=== PATIENT | female | born 1950 | race Asian ===

== ENCOUNTER 2016-08-30 08:16 | Inpatient (IN) | payer MEDICARE, OTHER ==
--- NOTE | 2016-08-24 12:53 | PREOPHP ---
DATE OF ADMISSION: 08/30/2016 REFERRING PHYSICIAN: Dr. Bree Guzman. DAY OF SURGERY: 08/30/2016 HISTORY OF PRESENT ILLNESS: This patient has been diagnosed with acute diverticulitis and sigmoid a bscess. She has been medically treated for the past 2 months with different IV and p.o. antibiotics . She has been evaluated by a electrolysist and by Dr. Guzman and at this time is being sched uled for colectomy. PAST MEDICAL HISTORY: Significant for hyperlipidemia and diverticulitis. PAST SURGERIES: She has had right shoulder surgery for repair of rotator cuff tear. She is status post hysterectomy for fibroid mass and hemorrhoidectomy. She is 0. HABITS: She does not smoke and she does not drink. SOCIAL HISTORY: She is and is a homemaker. ALLERGIES: NOT KNOWN. MEDICATIONS: She is on atorvastatin 20 mg daily. FAMILY HISTORY: Noncontributory. REVIEW OF SYSTEMS HEENT: The patient denies headache, dizziness, lightheadedness. No recent change in vision or hear ing. No epistaxis. No sinusitis. CARDIOVASCULAR: No chest pain, exertional shortness of breath or heart palpitations. RESPIRATORY: No cough, chest congestion, hemoptysis. No known history of asthma, tuberculosis or l maria eugenia disease. GASTROINTESTINAL: No nausea or vomiting. She has chronic abdominal pain with occasional diarrhea, no rectal bleeding. GENITOURINARY: She is status post hysterectomy. No urinary frequency, burning, or hematuria. NEUROPSYCH: Denies history of depression and anxiety. No muscle weakness, no tremor. PHYSICAL EXAMINATION: GENERAL: She is a well-developed, well-nourished, awake, alert, oriented female in no acute distres s. VITAL SIGNS: Weight is 127, height is about 5 feet, blood pressure 107/69, pulse is 70 and regular, respirations 17, temperature 98.3. SKIN: Warm and dry. No acute skin lesions. Skin turgor is normal. Skin is not icteric. HEENT: Head is normocephalic and atraumatic. Pupils are reactive to light and accommodation. TMs and pharynx are not injected. NECK: Supple. No adenopathy, no JVD, no carotid bruit. CHEST: Symmetric. LUNGS: Clear to P and A. No rales or rhonchi. HEART: Regular rhythm, no murmur, S1 and S2 are normal. ABDOMEN: There is mild to moderate left lower quadrant tenderness. No palpable masses. No rebound . EXTREMITIES: No edema, cyanosis, deformity. No calf tenderness. NEUROLOGICAL: Muscle strength is 5/5 in both upper and lower extremities. Sensation is grossly nor mal. DTR is 2+ bilaterally. IMPRESSION: History of diverticulitis and sigmoid abscess and hyperlipidemia. Electrocardiogram rev eals regular sinus rhythm with no acute ST-T changes. The patient has been scheduled for preop bloo d tests including CBC, comprehensive metabolic panel, PT, PTT, INR and urinalysis and a chest x-ray. She is clinically stable for surgery. Dictated By: CHEYENNE THOMPSON MD DL/NTS Conf#: [id number] DID#: [id number] CC: BREE GUZMAN MD;*End*
[2016-08-29 17:41] VITALS: BMI 28.1
[~2016-08-30] VITALS: Ht 142.2 cm; Wt 58.0 kg
[2016-08-30] VITALS (27 sets, daily range): BP systolic 96–134; BP diastolic 58–80; PULSE 76–92; RESP 12–20; Ht 142.2 cm; Wt 58.0 kg
[~2016-08-30 08:16] MED LIST: ATOR20TA38 PO; BACTDS PO; CHOL20003 PO; LACT1CAP47 PO; ONDA4TAB95 PO; ROCURONIUM 50 MG INJ ONE
[2016-08-30] MEDS ORDERED: LACTATED RINGER'S 1,000 ML IV ONE (08:30)
[2016-08-30] MEDS ORDERED: CEFOTAXIME 1 GM/50 ML (PMX) 50 ML IVPB ONE (08:30)
[2016-08-30] MEDS ORDERED: metroNIDAZOLE 500 MG/NS (PMX) 100 ML IVPB ONE (08:30)
[2016-08-30] MEDS ORDERED: OMEG500C3 PO (09:48)
--- NOTE | 2016-08-30 09:56 | HPN ---
Date/Time of Note Date/Time of Note DATE: 08/30/16 TIME: 09:56 Interval H&P Admission Note Pt. seen H&P reviewed: No system changes BREE GUZMAN MD Aug 30, 2016 09:56
[2016-08-30] MEDS ORDERED: MIDAZOLAM 1 MG/ML 2 ML INJ ONE (11:30)
[2016-08-30] MEDS ORDERED: PROPOFOL 20 ML ONE (11:30)
[2016-08-30] MEDS ORDERED: morphine SULFATE/PF (10 MG/10 ML) INJ ONE (11:31)
[2016-08-30] MEDS ORDERED: PHENYLephrine (100 MCG/ML) 5ML SYG ONE (11:53)
[2016-08-30] MEDS ORDERED: BUPIVACAINE 0.25%/EPI (SDV) 30 ML INJ ONE (12:27)
[2016-08-30] MEDS ORDERED: METOCLOPRAMIDE 10 MG INJ ONE (12:27)
[2016-08-30] MEDS ORDERED: LIDOCAINE 1% (MPF) 30 ML INJ ONE (12:27)
[2016-08-30] MEDS ORDERED: GLYCOPYRROLATE 0.4 MG INJ ONE (12:28)
[2016-08-30] MEDS ORDERED: ONDANSETRON 4 MG INJ ONE (12:28)
[2016-08-30] MEDS ORDERED: NEOSTIGMINE 3 MG/3 ML SYRINGE ONE (12:28)
[2016-08-30] MEDS ORDERED: ROPIVACAINE 0.5 % 30 ML VIAL ONE (15:12)
[2016-08-30] MEDS ORDERED: KETOROLAC 30 MG INJ ONE (15:16)
[2016-08-30] MEDS ORDERED: ONDANSETRON 4 MG INJ IV PRN ×3 (16:30)
[2016-08-30] MEDS ORDERED: HYDROmorphONE (0.2 MG/ML) 10ML SYG IV PRN ×2 (16:30)
[2016-08-30] MEDS ORDERED: MEPERIDINE 25 MG INJ IV PRN (16:30)
[2016-08-30] MEDS ORDERED: HYDROmorphONE 1 MG/ML SYG IV PRN ×4 (16:30)
[2016-08-30] MEDS ORDERED: DIPHENHYDRAMINE 50 MG INJ IV PRN ×2 (16:30)
[2016-08-30] MEDS ORDERED: CEFTRIAXONE 1 GM/50 ML (PMX) 50 ML IVPB SCH (16:30)
[2016-08-30] MEDS ORDERED: NALOXONE (0.4 MG/ML) INJ IV PRN (16:30)
[2016-08-30] MEDS ORDERED: KETOROLAC 30 MG INJ IV PRN (16:30)
[2016-08-30] MEDS ORDERED: METOCLOPRAMIDE 10 MG INJ IV PRN (16:30)
[2016-08-30] MEDS ORDERED: HYDROCODONE/APAP (5/325) TAB PO PRN (16:30)
--- NOTE | 2016-08-30 16:47 | OPR ---
Date/Time of Note Date/Time of Note DATE: 08/30/16 TIME: 16:30 Operative Report Procedure Date: Aug 30, 2016 Preoperative Diagnosis 1. History of perforated diverticulitis 2. Possible colovesicular fistula 3. Possible colovaginal fistula Postoperative Diagnosis 1. History of perforated diverticulitis with significant intrapelvic adhesions to bladder and pelvic structures 2. Intra-abdominal entire small bowel and sigmoid adhesions Operation Performed 1. Laparoscopic sigmoid resection 2. Laparoscopic end colostomy with Jarvis's pouch 3. Laparoscopic enterorrhaphy 2 4. Rigid sigmoidoscopy 5. Implantation of biologic over the bladder vagina and the pelvic raw surface 6. Local anesthetic injection, [id number] Surgeon: BREE GUZMAN MD Regional Wildlife Agent: HELEN RIBEIRO DO Anesthesia: general (plus local plus regional) Anesthesiologist: CRAIG KIM MD Estimated Blood Loss: 100 - 150 ml's Specimens Sigmoid with distal suture Tubes/Drains 19 Egyptian Toi through the right abdomen ACell 10 x 15 and 7 x 10, 3 layer sheets Complications: None Pt Condition Post Procedure: stable Disposition: PACU Indications Patient has had 2 perforated diverticulitis episodes. She's been treated medically previously. She is here for elective resection especially since her CT shows possible fistula. She understands that she may end up with a colostomy. Risks include but are not limited to bleeding, infection, abscess, seroma, leak , damage to intestines or any intra-abdominal/intrapelvic structures, hernia formation, chronic pain, need for re-operations or further surgeries, WA, stroke , PE, DVT, pneumonia, organ failures, or even . Procedure Description Patient was brought into the operating room, placed supine on the operating table, SCDs were placed, right arm was tucked, all pressure points were well- padded, preoperative antibiotics administered, and after induction of anesthesia , patient was placed in the lithotomy. Vogel was inserted. Patient was then prepped and draped in usual sterile fashion, and timeout was performed. Incision was made in the right upper quadrant, and using an Optiview port and 5 mm 0 scope abdomen was safely entered and insufflated to 15 mmHg with CO2. Laparoscopy was performed and no injuries were identified. There was tattoo marking in the sigmoid colon with some splattering of the tattoo ink on the ro and the intestines. Under direct visualization another 5 mm port was placed in the right lower quadrant a 12 mm port was placed in the right lower lateral quadrant. Eventually a 5 mm port was placed in the left upper quadrant. Patient was placed in Trendelenburg and left side up. Patient had extensive small bowel to small bowel adhesions which were lysed easily however there was a area of dense adhesion of small bowel to itself and mesentery of the sigmoid colon. This was very meticulously dissected and 2 area of the small bowel were repaired with 3-0 silk Lembert sutures to reinforce the serosa. There is very dense incisions of the colon to the bladder and pelvic structures (probable ovaries and tubes. Very meticulous dissection was performed to separate the colon from the bladder finally no defect was visualized on the bladder. Using LigaSure and scissor colon was mobilized off of the left lateral wall in the avascular plane fully mobilizing the left colon the sigmoid and the upper rectum. The medial mesentery was opened and the left colon, sigmoid and the upper rectum beyond the peritoneal reflection. At least 5 cm of colon proximal and distal to the inflamed region were marked. The mesentery was sequentially taken using LigaSure with complete hemostasis. The colon 5 cm proximal and distal to the affected area area was transected with Endo KVNG echelon 45 mm blue staplers. Prior to stapling the colon rigid sigmoidoscopy was performed to 20 cm to fully identified the colon and location to other structures and to look for a possible fistulous openings. None were identified. Due to the significant inflammation I decided not to create an anastomosis. Instead as I have discussed with patient preoperatively, we decided to proceed with end colostomy and Jarvis's pouch. 2-0 Prolene suture was placed on the right lateral aspect of the rectal stump for future identification. The bladder vagina and the pelvic posterior wall were reinforced with 3 layer biologic xenograft tissue to one improve healing and secondary to reduce adhesions to bowel. Incision was made in the left lower quadrant and the proximal colon was exteriorized after the specimen was removed and was tagged with 2-0 silk suture distally. 19 Egyptian Toi was placed through the right lower quadrant 5 mm port into the pelvis and secured with 3-0 nylon suture. Pulmonary reports that fascia was closed with Endo Close and 0 Vicryl in a [id number] manner. The colostomy was not twisted. Ports and CO2 were removed under direct visualization. Wounds were thoroughly irrigated and skin was closed with 4-0 Monocryl subcutaneous closure fashion. Dermabond was applied on the trocar sites. The drain was secured with dressing. The colostomy was matured with 2-0 silk sutures from the fascia to the base of the colostomy. Then the 2 silk sutures were used to riley the colon in 4 corners and then 2-0 silk suture was used to secure the colon attached to the abdominal wall circumferentially. Colostomy bag was applied. All counts were correct and the end of the operation 2. Patient was extubated and transferred to recovery room in stable condition. BREE GUZMAN MD Aug 30, 2016 16:46
[2016-08-30] MEDS: HYDROmorphONE (0.2 MG/ML) 10ML SYG IV PRN ×5 (17:02→17:46)
[2016-08-30] MEDS: metroNIDAZOLE 500 MG/NS (PMX) 100 ML IVPB SCH (17:14)
--- NOTE | 2016-08-30 18:27 | HP ---
DATE OF ADMISSION: 08/30/2016 TIME OF EVALUATION: 1700 hours. REASON FOR ADMISSION: Perforated diverticulitis with significant pelvic adhesions of bladder and pelvic structures. CONSULTATIONS: Dr. Bruce Rodriguez, general surgery. HISTORY OF PRESENT ILLNESS: This is a 66-year-old female with a past medical history of hyperlipidemia, diverticulitis with perforation and intrapelvic adhesions to the bladder and pelvic structures and iron deficiency anemia who was brought in electively for surgical intervention. The patient underwent a laparoscopic sigmoid colon resection with laparoscopic colostomy with Jeremy's pouch, laparoscopic enterorrhaphy and implantation of biologic over the bladder, vagina and pelvic raw surface with no immediate postoperative complications. The patient was transferred to the PACU. The patient was having perforated diverticulitis and intrapelvic adhesions for the past few months. The patient has history of insertion of a drain placement for infected diverticular abscess in February 2016. The patient has been following up with Dr. Rodriguez as outpatient. The patient was brought to the hospital for the current surgery. PAST MEDICAL HISTORY: Perforated diverticulitis, pelvic abscess, iron deficiency, hyperlipidemia. PAST SURGICAL HISTORY: Right shoulder rotator cuff surgery, hysterectomy, hemorrhoidectomy. HOME MEDICATIONS: 1. Atorvastatin 20 mg p.o. at bedtime. 2. [place] 3 fatty acid 1000 mg p.o. daily. 3. Probiotic 1 capsule p.o. daily. 4. Vitamin D3 2000 units p.o. daily. ALLERGIES: NO KNOWN DRUG ALLERGIES. SOCIAL HISTORY: The patient lives at home with her . The patient has no kids. No history of tobacco, alcohol or illicit drug use. REVIEW OF SYSTEMS: A 12-point review of systems was done and review of systems , nonsignificant other than the patient has current pain at incision site with some associated nausea secondary to recent anesthesia. PHYSICAL EXAMINATION: VITAL SIGNS: Temperature 97.9, pulse rate 88, respiratory rate 14, blood pressure 121/67, oxygen saturation 97% on low flow O2. GENERAL: This is a slightly overweight female lying in bed in no apparent distress. HEENT: Head normocephalic and atraumatic. Eyes: Anicteric sclerae. Conjunctivae clear. ENT: Nasal septum is midline. Oral mucosa is dry. NECK: Supple. No JVD noticed. RESPIRATORY: Bilaterally diminished breath sounds. No adventitious breath sounds heard. No use of accessory muscles of respiration. CARDIAC: Regular rate and rhythm. No murmurs. ABDOMEN: Three laparoscopic incision sites with surgical glue on top of it. Right-sided EDISON drain in place. Left-sided colostomy in place. Bowel sounds hypoactive. GENITOURINARY: Patient has a Vogel catheter in place. EXTREMITIES: No cyanosis, no clubbing, no edema. Peripheral pulses are palpable. NEUROLOGIC: The patient is awake, alert and oriented. Moves all 4 extremities. No focal deficits. LABORATORY AND DIAGNOSTIC DATA: No lab or diagnostic data from current admission. Labs are pending at this time. IMPRESSION: This is a 66-year-old female who was brought in electively for surgical intervention for perforated colitis and pelvic abscess. The patient is status post sigmoid colon resection with colostomy replacement. She will be admitted here for further treatment and evaluation. ASSESSMENT AND PLAN: 1. History of perforated diverticulitis with significant pelvic adhesions, bladder and pelvic structures. Status post laparoscopic sigmoid resection, laparoscopic end colostomy with Jeremy pouch, laparoscopic enterorrhaphy, sigmoidoscopy, implantation of biologic over bladder, vagina and the pelvis. Continue postoperative care. Pain management as per the surgeon. IV fluids as per the surgeon. The patient was started on a clear liquid diet. The patient will be encouraged on early ambulation. The patient will be started with incentive spirometer. 2. Dyslipidemia. The patient's statins will be put on hold at this time. A fasting lipid panel will be obtained. 3. Iron deficiency. Iron panel will be obtained on this patient. The patient' s H and H will be monitored closely. Plan. The patient will be admitted to inpatient medical/surgical floor. The patient will be started on clear liquid diet. The patient will be started on DVT prophylaxis with bilateral sequential compression devices. The patient was started on gastrointestinal prophylaxis. Activities will be up with assistance. The patient will remain a full code. The patient will be maintained on antibiotics for 24 hours as per surgery recommendations. The rest of the patient's management will be based on the clinical course, the results of diagnostic studies and inputs from consultants. Based on the patient's clinical presentation, she most probably requires more than 2 midnights' stay for further management and evaluation of her clinical presentation. The case and management of this patient was fully discussed with Dr. Butt. Approximately 50 minutes was spent on the history and physical on this patient. EARLENE BUTT MD AM/ADRIANNE Conf#: [id number] DID#: [id number] MTDD
[2016-08-30] MEDS: D5W-0.45 NACL + KCL 20 MEQ 1,000 ML IV SCH (18:29)
[2016-08-30] MEDS ORDERED: metroNIDAZOLE 500 MG/NS (PMX) 100 ML IVPB SCH (20:00)
[2016-08-31] VITALS: BP 118/65; PULSE 91; RESP 18
[2016-08-31] MEDS: metroNIDAZOLE 500 MG/NS (PMX) 100 ML IVPB SCH ×3 (00:43→16:33)
[2016-08-31 01:00] VITALS: BP 116/62; PULSE 94; RESP 18
[2016-08-31 04:00] VITALS: BP 114/62; PULSE 95; RESP 18
[2016-08-31 05:21] LABS: HEMATOCRIT 26.6 % (37.0-47.0); HEMOGLOBIN 8.8 g/dl (12.0-16.0); MEAN CORPUSCULAR HEMOGLOBIN 28.5 pg (29.0-33.0); MEAN CORPUSCULAR VOLUME 86.6 fl (82.0-101.0); MEAN PLATELET VOLUME 7.1 fl (7.4-10.4); PLATELET COUNT 214 10^3/UL (140-440); RED BLOOD COUNT 3.08 10^6/ul (4.20-5.40); RED CELL DISTRIBUTION WIDTH 15.6 % (11.5-14.5); UNCORRECTED WBC 9.2 10^3/ul (4.8-10.8); WHITE BLOOD COUNT 9.2 10^3/ul (4.8-10.8)
[2016-08-31 05:26] LABS: ALBUMIN 3.2 g/dl (3.3-4.9)
[2016-08-31 05:27] LABS: POTASSIUM 4.7 mmol/L (3.5-5.1)
[2016-08-31 05:29] LABS: ALBUMIN/GLOBULIN RATIO 1.06; BILIRUBIN,INDIRECT 0.2 mg/dl (0-1.1); BILIRUBIN,TOTAL 0.2 mg/dl (0.2-1.3); CREATININE 0.64 mg/dl (0.44-1.00); TOTAL PROTEIN 6.2 g/dl (6.1-8.1)
[2016-08-31 05:30] LABS: CALCIUM 8.5 mg/dl (8.4-10.2)
[2016-08-31 05:38] LABS: TOTAL IRON BINDING CAPACITY 249 ug/dl (241-421)
[2016-08-31 05:47] LABS: IRON 31 ug/dl (35-150)
[2016-08-31 05:55] LABS: CHOL/HDL RATIO 3.6 RATIO; MAGNESIUM 1.5 mg/dl (1.7-2.5); PHOSPHORUS 3.4 mg/dl (2.5-4.9)
[2016-08-31 06:02] LABS: THYROID STIMULATING HORMONE 1.54 MIU/L (0.465-4.680)
[2016-08-31] MEDS: PANTOPRAZOLE (EC) 40 MG TAB PO SCH (06:34)
[2016-08-31] MEDS: D5W-0.45 NACL + KCL 20 MEQ 1,000 ML IV SCH ×2 (06:35→18:02)
[2016-08-31 06:47] LABS: SUSPECT 1
[2016-08-31 06:48] LABS: CONDITION 1; LH ANALYZER COMMENTS 1
[2016-08-31 07:38] VITALS: BP 95/52; RESP 16
[2016-08-31] MEDS ORDERED: MAGNESIUM SULFATE 2 GM/50 ML 50 ML IVPB ONE (09:30)
[2016-08-31] MEDS ORDERED: SOD FERRIC GLUC COMPLX 125 MG in SOD CHLORIDE 0.9% 100 ML IVPB SCH (09:30)
--- NOTE | 2016-08-31 09:54 | PN ---
Date/Time of Note Date/Time of Note DATE: 08/31/16 TIME: 09:53 Assessment/Plan VTE Prophylaxis VTE Prophylaxis Intervention: SCD's Lines/Catheters IV [facility]ter Type (from [facility]): Saline Lock Urinary Cath still in place: No Assessment/Plan Chief Complaint/Hosp Course 1. History of perforated diverticulitis with significant pelvic adhesions. Status post laparoscopic sigmoid resection, laparoscopic end colostomy with Jeremy pouch, laparoscopic enterorrhaphy, sigmoidoscopy, implantation of biologic over bladder, vagina and the pelvis. Continue postoperative care. Pain management as per the surgeon. IV fluids as per the surgeon. Encourage early ambulation. Advancement of diet as per surgery. Encourage incentive spirometry 2. Dyslipidemia. The patient's statins will be resumed. Fasting lipid panel satisfactory. 3. Normocytic anemia with iron deficiency. Iron panel showing low iron levels. Will start the patient on iron supplements. The patient's H and H will be monitored closely. 4. Hypomagnesemia. Replete. 5. Fluids, electrolytes, and nutrition. Clear liquid diet. Advancement of diet as per surgery. 6. DVT prophylaxis. Bilateral sequential compression devices. 7. Gastrointestinal prophylaxis. Proton pump inhibitors. 8. Plan. Advancement of diet as per surgery. Start early ambulation. Encourage frequent use of incentive spirometry. Replete magnesium. Start IV iron supplements. Case discussed with Dr. Butt. Problems: Subjective 24 Hr Interval Summary Free Text/Dictation Abdominal pain well controlled. Vogel catheter has been discontinued. Exam/Review of Systems Vital Signs Vitals Vital Signs Date Time Temp Pulse Resp B/P Pulse Ox O2 Delivery O2 Flow Rate FiO2 08/31/16 07:38 99.5 102 16 95/52 98 08/31/16 04:00 Nasal Cannula 2.0 Intake and Output 08/30/16 08/30/16 08/31/16 15:00 23:00 07:00 Intake Total 2800 ml 1180 ml Output Total 425 ml 75 ml Balance 2375 ml 1105 ml Exam GENERAL: This is a slightly overweight female lying in bed in no apparent distress. HEENT: Head normocephalic and atraumatic. Eyes: Anicteric sclerae. Conjunctivae clear. ENT: Nasal septum is midline. Oral mucosa is dry. NECK: Supple. No JVD noticed. RESPIRATORY: Bilaterally diminished breath sounds. No adventitious breath sounds heard. No use of accessory muscles of respiration. CARDIAC: Regular rate and rhythm. No murmurs. ABDOMEN: Three laparoscopic incision sites with surgical glue on top of it. Right-sided EDISON drain in place. Left-sided colostomy in place. Bowel sounds hypoactive. GENITOURINARY: Deferred. EXTREMITIES: No cyanosis, no clubbing, no edema. Peripheral pulses are palpable. NEUROLOGIC: The patient is awake, alert and oriented. Moves all 4 extremities. No focal deficits. Results Result Diagram: 08/31/1643208/31/16432 Results 24 hrs Laboratory Tests Test 08/31/16 04:33 Alanine Aminotransferase (ALT/SGPT) 27 Albumin 3.2 L Albumin/Globulin Ratio 1.06 Alkaline Phosphatase 43 Anion Gap 14 Aspartate Amino Transf (AST/SGOT) 27 Blood Morphology Comment Blood Urea Nitrogen 13 Calcium Level 8.5 Carbon Dioxide Level 25 Chloride Level 103 Cholesterol Level 146 Cholesterol/HDL Ratio 3.6 Creatinine 0.64 Direct Bilirubin 0.00 Ferritin 284.0 H Free Thyroxine 0.59 L Globulin 3.00 Glucose Level 100 HDL Cholesterol 40 Hematocrit 26.6 L Hemoglobin 8.8 L Hemoglobin A1c 5.2 Indirect Bilirubin 0.2 Iron Level 31 L LDL Cholesterol, Calculated 91 Magnesium Level 1.5 L Mean Corpuscular Hemoglobin 28.5 L Mean Corpuscular Hemoglobin Concent 33.0 Mean Corpuscular Volume 86.6 Mean Platelet Volume 7.1 L Nucleated Red Blood Cells # Percent Iron Saturation 12 L Phosphorus Level 3.4 Platelet Count 214 # Potassium Level 4.7 Red Blood Count 3.08 L Red Cell Distribution Width 15.6 H Sodium Level 137 Thyroid Stimulating Hormone (TSH) 1.540 Total Bilirubin 0.2 Total Iron Binding Capacity 249 Total Protein 6.2 Triglycerides Level 74 White Blood Count 9.2 # Medications Medications Current Medications Naloxone HCl (Narcan) 0.1 mg Q2M PRN IV FOR RESP RATE 8 OR LESS; Start at 16:30; Stop 08/31/16 at 16:29 Ketorolac Tromethamine (Toradol) 30 mg Q6H PRN IV PAIN Last administered on t 09:42; Admin Dose 30 MG; Start 08/30/16 at 16:30; Stop 08/31/16 at 16:29 Hydromorphone HCl (Dilaudid) 1 mg Q3H PRN IV BREAKTHROUGH PAIN; Start 08/30/16 at 16:30; Stop 08/31/16 at 16:29 Hydromorphone HCl (Dilaudid) 0.2 mg Q3H PRN IV PAIN LEVEL 1-5; Start 08/30/16 at 16:30; Stop 08/31/16 at 16:29 Hydromorphone HCl (Dilaudid) 0.4 mg Q3H PRN IV PAIN LEVEL 6-10; Start 08/30/16 at 16:30; Stop 08/31/16 at 16:29 Diphenhydramine HCl (Benadryl) 25 mg Q6H PRN IV ITCHING; Start 08/30/16 at 16: 30; Stop 08/31/16 at 16:29 Ondansetron HCl (Zofran Inj) 4 mg Q6H PRN IV NAUSEA AND/OR VOMITING; Start at 16:30; Stop 08/31/16 at 16:29 Ondansetron HCl (Zofran Inj) 4 mg Q6H PRN IV NAUSEA AND/OR VOMITING; Start at 16:30 Pantoprazole 40 mg 40 mg DAILY@06 PO Last administered on 08/31/16 06:34; Admin Dose 40 MG; Start 08/31/16 at 06:00 Potassium Chloride/Dextrose/ Sod Cl 1,000 ml @ 90 mls/hr Q11H7M IV Last administered on 08/31/16 06:35; Admin Dose 90 MLS/HR; Start 08/30/16 at 16:19 Metronidazole (Flagyl 500 Mg (Pmx)) 100 ml @ 100 mls/hr Q8H IVPB Last administered on 08/31/16 08:25; Admin Dose 100 MLS/HR; Start 08/30/16 at 17:00 ; Stop 08/31/16 at 16:59 Acetaminophen/ Hydrocodone Bitart ([place] (5/325)) 2 tab Q4H PRN PO Pain 6-10; Start 08/30/16 at 16:30 Acetaminophen/ Hydrocodone Bitart ([place] (5/325)) 1 tab Q4H PRN PO Pain 1-5; Start 08/30/16 at 16:30 Hydromorphone HCl 0.5 mg 0.5 mg Q2 PRN IV Breakthrough PAIN; Start 08/30/16 at 16:30 Magnesium Sulfate 50 ml @ 25 mls/hr ONCE ONCE IVPB ; Start 08/31/16 at 09:30; Stop 08/31/16 at 11:29 Ferric Sodium Gluconate Complex/ Sodium Chloride (Ferrlecit/NS) 110 ml @ 100 mls/hr Q24H IVPB ; Start 08/31/16 at 09:30; Stop 09/02/16 at 10:35 EARLENE BAÑUELOS NP Aug 31, 2016 09:54
[2016-08-31 10:08] LABS: LYMPHOCYTES # 1.1 10^3/ul (0.8-2.9); MONOCYTE # 0.5 10^3/ul (0.3-0.9); NEUTROPHIL # 7.2 10^3/ul (1.6-7.5)
[2016-08-31 10:09] LABS: ANISOCYTOSIS 1+; HYPOCHROMASIA 1+
[2016-08-31 11:33] LABS: ADD UMIC YES; URINE BILIRUBIN (Dip) NEGATIVE (NEGATIVE); URINE BLOOD (Dip) 3+ (NEGATIVE); URINE COLOR YELLOW (YELLOW); URINE GLUCOSE (Dip) NEGATIVE (NEGATIVE); URINE KETONES (Dip) NEGATIVE (NEGATIVE); URINE LEUKOCYTE ESTERASE (Dip) NEGATIVE (NEGATIVE); URINE NITRITE (Dip) NEGATIVE (NEGATIVE); URINE TOTAL PROTEIN (Dip) 1+ (NEGATIVE); URINE UROBILINOGEN (Dip) 0.2 E.U./dL (0.1-1.0)
[2016-08-31 11:58] LABS: URINE RBCS >200 /HPF (0)
[2016-08-31 11:59] LABS: BACTERIA,URINE OCCASIONAL
[2016-08-31] MEDS: SOD FERRIC GLUC COMPLX 125 MG in SOD CHLORIDE 0.9% 100 ML IVPB SCH (12:32)
--- NOTE | 2016-08-31 12:35 | PN ---
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 Dyslipidemia -diet/med optimization 4. BMI 29 -diet/exercise optimization 5. Hypoalbuminemia -eventual nutritional optimization Problems: Subjective 24 Hr Interval Summary Low grade temp. Min pain. Tachycardia. No cp/sob. No cough. No vickers/dizzy/ visual or neuro changes. No dysuria. Exam/Review of Systems Vital Signs Vitals Vital Signs Date Time Temp Pulse Resp B/P Pulse Ox O2 Delivery O2 Flow Rate FiO2 08/31/16 07:38 99.5 102 16 95/52 98 08/31/16 04:00 Nasal Cannula 2.0 Intake and Output 08/30/16 08/30/16 08/31/16 15:00 23:00 07:00 Intake Total 2800 ml 1180 ml Output Total 425 ml 75 ml Balance 2375 ml 1105 ml Exam Constitutional: alert, oriented, No distress Psych: nl mood/affect, No anxiety, No confusion Head: atraumatic, normocephalic Eyes: EOMI, PERRL, nl conjunctiva, No icteric ENMT: mucosa pink and moist, nl external ears & nose Neck: non-tender, supple, No jvd Respiratory: normal air movement, No congested cough, No labored breathing Cardiovascular: regular rate and rhythm, No edema Gastrointestinal: other (Colostomy pink), soft, tender (min), No rebound or guarding Musculoskeletal: nl extremities to inspection, nl gait and stance, No joint tenderness Extremities: normal pulses, No calf tenderness, No cyanosis Neurological: nl mental status, nl speech, nl strength Skin: nl turgor, No diaphoresis, No rash or lesions Lymph: nl lymph nodes Results Result Diagram: 08/31/16 0433 08/31/16 0433 BREE GUZMAN MD Aug 31, 2016 12:35
[2016-08-31 12:42] VITALS: BP 102/50; PULSE 97; RESP 20
[2016-08-31] MEDS ORDERED: CEFTRIAXONE 1 GM/50 ML (PMX) 50 ML IVPB ONE (17:00)
[2016-08-31] MEDS: ATORVASTATIN 20 MG TAB PO SCH (20:05)
[2016-08-31] MEDS: HYDROCODONE/APAP (5/325) TAB PO PRN (20:13)
[2016-08-31 20:15] VITALS: BP 110/58; RESP 20
[2016-08-31] MEDS: ACETAMINOPHEN 325 MG TAB PO PRN (22:21)
[2016-09-01 00:10] VITALS: BP 110/61; PULSE 99; RESP 18
[2016-09-01 05:15] LABS: BASOPHILS % 0.2 % (0.0-2.0); EOSINOPHILS # 0.1 10^3/ul (0.0-0.5); EOSINOPHILS % 1.4 % (0.0-7.0); HEMATOCRIT 25.3 % (37.0-47.0); HEMOGLOBIN 8.4 g/dl (12.0-16.0); LYMPHOCYTES # 1.1 10^3/ul (0.8-2.9); LYMPHOCYTES % 14.6 % (15.0-51.0); MEAN CORPUSCULAR HEMOGLOBIN 28.6 pg (29.0-33.0); MEAN CORPUSCULAR HGB CONC 33.3 g/dl (32.0-37.0); MEAN CORPUSCULAR VOLUME 86.1 fl (82.0-101.0); MEAN PLATELET VOLUME 6.5 fl (7.4-10.4); MONOCYTE # 0.5 10^3/ul (0.3-0.9); MONOCYTES % 7.2 % (0.0-11.0); NEUTROPHIL # 5.7 10^3/ul (1.6-7.5); NEUTROPHILS % 76.6 % (39.0-77.0); PLATELET COUNT 212 10^3/UL (140-440); RED BLOOD COUNT 2.93 10^6/ul (4.20-5.40); UNCORRECTED WBC 7.4 10^3/ul (4.8-10.8); WHITE BLOOD COUNT 7.4 10^3/ul (4.8-10.8)
[2016-09-01] MEDS: PANTOPRAZOLE (EC) 40 MG TAB PO SCH (05:16)
[2016-09-01] MEDS: D5W-0.45 NACL + KCL 20 MEQ 1,000 ML IV SCH ×3 (05:16→23:54)
[2016-09-01 05:18] VITALS: BP 123/61; PULSE 95; RESP 18
[2016-09-01 05:21] LABS: POTASSIUM 3.9 mmol/L (3.5-5.1)
[2016-09-01 05:23] LABS: ALBUMIN/GLOBULIN RATIO 0.96; BILIRUBIN,INDIRECT 0.2 mg/dl (0-1.1); BILIRUBIN,TOTAL 0.2 mg/dl (0.2-1.3); CREATININE 0.62 mg/dl (0.44-1.00); TOTAL PROTEIN 6.1 g/dl (6.1-8.1)
[2016-09-01 05:24] LABS: CALCIUM 8.6 mg/dl (8.4-10.2); MAGNESIUM 2.2 mg/dl (1.7-2.5); PHOSPHORUS 2.5 mg/dl (2.5-4.9)
[2016-09-01 05:26] LABS: CONDITION 1; LH ANALYZER COMMENTS 1
[2016-09-01 07:22] VITALS: BP 124/70; RESP 17
[2016-09-01] MEDS: CHOLECALCIFEROL 2,000 UNIT CAP PO SCH (09:12)
[2016-09-01] MEDS: HYDROCODONE/APAP (5/325) TAB PO PRN ×2 (09:19→16:17)
--- NOTE | 2016-09-01 09:27 | PN ---
Date/Time of Note Date/Time of Note DATE: 09/01/16 TIME: 09:25 Assessment/Plan VTE Prophylaxis VTE Prophylaxis Intervention: SCD's Lines/Catheters IV Catheter Type (from [facility]): Peripheral IV Urinary Cath still in place: No Assessment/Plan Chief Complaint/Hosp Course 1. History of perforated diverticulitis with significant pelvic adhesions. Status post laparoscopic sigmoid resection, laparoscopic end colostomy with Jeremy pouch, laparoscopic enterorrhaphy, sigmoidoscopy, implantation of biologic over bladder, vagina and the pelvis. Continue postoperative care. Pain management as per the surgeon. IV fluids as per the surgeon. Encourage early ambulation. Advancement of diet as per surgery. Encourage incentive spirometry 2. Dyslipidemia. Continue statins. Fasting lipid panel satisfactory. 3. Normocytic anemia with iron deficiency. Iron panel showing low iron levels. Continue iron supplements. The patient's H and H will be monitored closely. 4. Vitamin D deficiency. Continue supplements. 5. Fluids, electrolytes, and nutrition. Clear liquid diet. Advancement of diet as per surgery. 6. DVT prophylaxis. Bilateral sequential compression devices. 7. Gastrointestinal prophylaxis. Proton pump inhibitors. 8. Plan. Advancement of diet as per surgery. Encourage frequent ambulation. Encourage frequent use of incentive spirometry. Will order physical therapy evaluation. Case discussed with Dr. Butt. Problems: Subjective 24 Hr Interval Summary Free Text/Dictation The patient had a febrile episode last night. Pain fairly well controlled. Exam/Review of Systems Vital Signs Vitals Vital Signs Date Time Temp Pulse Resp B/P Pulse Ox O2 Delivery O2 Flow Rate FiO2 09/01/16 07:22 99.4 101 17 124/70 98 09/01/16 05:18 Room Air 08/31/16 04:00 2.0 Intake and Output 08/31/16 08/31/16 09/01/16 15:00 23:00 07:00 Intake Total 260 ml 1530 ml 1240 ml Output Total 760 ml 770 ml Balance 260 ml 770 ml 470 ml Exam GENERAL: This is a slightly overweight female lying in bed in no apparent distress. HEENT: Head normocephalic and atraumatic. Eyes: Anicteric sclerae. Conjunctivae clear. ENT: Nasal septum is midline. Oral mucosa is dry. NECK: Supple. No JVD noticed. RESPIRATORY: Bilaterally diminished breath sounds. No adventitious breath sounds heard. No use of accessory muscles of respiration. CARDIAC: Regular rate and rhythm. No murmurs. ABDOMEN: Three laparoscopic incision sites with surgical glue on top of it. Right-sided EDISON drain in place. Left-sided colostomy in place. Bowel sounds hypoactive. GENITOURINARY: Deferred. EXTREMITIES: No cyanosis, no clubbing, no edema. Peripheral pulses are palpable. NEUROLOGIC: The patient is awake, alert and oriented. Moves all 4 extremities. No focal deficits. Results Result Diagram: 09/01/1643909/01/16439 Results 24 hrs Laboratory Tests Test 09/01/16 04:40 Alanine Aminotransferase (ALT/SGPT) 26 Albumin 3.0 L Albumin/Globulin Ratio 0.96 Alkaline Phosphatase 51 Anion Gap 11 Aspartate Amino Transf (AST/SGOT) 18 Basophils # 0.0 Basophils % 0.2 Blood Morphology Comment Blood Urea Nitrogen 6 L Calcium Level 8.6 Carbon Dioxide Level 26 Chloride Level 107 Creatinine 0.62 Direct Bilirubin 0.00 Eosinophils # 0.1 Eosinophils % 1.4 Globulin 3.10 Glucose Level 113 Hematocrit 25.3 L Hemoglobin 8.4 L Indirect Bilirubin 0.2 Lymphocytes # 1.1 Lymphocytes % 14.6 L Magnesium Level 2.2 Mean Corpuscular Hemoglobin 28.6 L Mean Corpuscular Hemoglobin Concent 33.3 Mean Corpuscular Volume 86.1 Mean Platelet Volume 6.5 L Monocytes # 0.5 Monocytes % 7.2 Neutrophils # 5.7 Neutrophils % 76.6 Nucleated Red Blood Cells # 0.0 Nucleated Red Blood Cells % 0.0 Phosphorus Level 2.5 Platelet Count 212 Potassium Level 3.9 Red Blood Count 2.93 L Red Cell Distribution Width 16.0 H Sodium Level 140 Total Bilirubin 0.2 Total Protein 6.1 White Blood Count 7.4 Medications Medications Current Medications Ondansetron HCl (Zofran Inj) 4 mg Q6H PRN IV NAUSEA AND/OR VOMITING; Start at 16:30 Pantoprazole 40 mg 40 mg DAILY@06 PO Last administered on 09/01/16 05:16; Admin Dose 40 MG; Start 08/31/16 at 06:00 Potassium Chloride/Dextrose/ Sod Cl (D5-1/2ns + KCl 20 Meq) 1,000 ml @ 90 mls/ hr Q11H7M IV Last administered on 09/01/16 05:16; Admin Dose 90 MLS/HR; Start 08/30/16 at 16:19 Acetaminophen/ Hydrocodone Bitart ([place] (5/325)) 2 tab Q4H PRN PO Pain 6-10; Start 08/30/16 at 16:30 Acetaminophen/ Hydrocodone Bitart ([place] (5/325)) 1 tab Q4H PRN PO Pain 1-5 Last administered on 09/01/16 09:19; Admin Dose 1 TAB; Start 08/30/16 at 16:30 Hydromorphone HCl 0.5 mg 0.5 mg Q2 PRN IV Breakthrough PAIN; Start 08/30/16 at 16:30 Ferric Sodium Gluconate Complex/ Sodium Chloride (Ferrlecit/NS) 110 ml @ 100 mls/hr Q24H IVPB Last administered on 08/31/16 12:32; Admin Dose 100 MLS/HR; Start 08/31/16 at 12:00; Stop 09/02/16 at 13:05 Atorvastatin Calcium (Lipitor) 20 mg QHS PO Last administered on 08/31/16 20: 05; Admin Dose 20 MG; Start 08/31/16 at 21:00 Cholecalciferol (Vitamin D) 2,000 unit DAILY PO Last administered on 09/01/16 09:12; Admin Dose 2,000 UNIT; Start 09/01/16 at 09:00 Acetaminophen (Tylenol Tab) 650 mg Q6H PRN PO PAIN AND OR ELEVATED TEMP Last administered on 08/31/16 22:21; Admin Dose 650 MG; Start 08/31/16 at 21:30 EARLENE BAÑUELOS NP Sep 01, 2016 09:27
[2016-09-01] MEDS: SOD FERRIC GLUC COMPLX 125 MG in SOD CHLORIDE 0.9% 100 ML IVPB SCH (13:40)
[2016-09-01 20:30] VITALS: BP 125/73; RESP 18
[2016-09-01] MEDS: ATORVASTATIN 20 MG TAB PO SCH (21:13)
[2016-09-01] MEDS: ACETAMINOPHEN 325 MG TAB PO PRN (21:14)
--- NOTE | 2016-09-01 23:16 | PN ---
Date/Time of Note Date/Time of Note DATE: 09/01/16 TIME: 23:11 Assessment/Plan Lines/Catheters IV Catheter Type (from [facility]): Peripheral IV Vogel in Place (from [facility]): No Assessment/Plan Chief Complaint/Hosp Course 1. Colostomy state -brass buffer -local care and teaching -advance diet as tolerated 2 Anemia, iron deficiency -monitor -eventual colonoscopy 3. Dyslipidemia -diet/med optimization 4. BMI 29 -diet/exercise optimization 5. Hypoalbuminemia -nutritional optimization Thank you, Problems: Subjective 24 Hr Interval Summary Fever curve improved. No chills. Gas/stool in bag. Min pain. Tachycardia. No cp/sob. No cough. No vickers/dizzy/visual or neuro changes. No dysuria. Exam/Review of Systems Vital Signs Vitals Vital Signs Date Time Temp Pulse Resp B/P Pulse Ox O2 Delivery O2 Flow Rate FiO2 09/01/16 20:30 98.3 100 18 125/73 97 09/01/16 05:18 Room Air 08/31/16 04:00 2.0 Intake and Output 08/31/16 08/31/16 09/01/16 15:00 23:00 07:00 Intake Total 260 ml 1530 ml 1240 ml Output Total 760 ml 770 ml Balance 260 ml 770 ml 470 ml Exam Free Text/Dictation Constitutional: alert, oriented, No distress Psych: nl mood/affect, No anxiety, No confusion Head: atraumatic, normocephalic Eyes: EOMI, PERRL, nl conjunctiva, No icteric ENMT: mucosa pink and moist, nl external ears & nose Neck: non-tender, supple, No jvd Respiratory: normal air movement, No congested cough, No labored breathing Cardiovascular: regular rate and rhythm, No edema Gastrointestinal: other (Colostomy pink), soft, tender (min), No rebound or guarding Musculoskeletal: nl extremities to inspection, nl gait and stance, No joint tenderness Extremities: normal pulses, No calf tenderness, No cyanosis Neurological: nl mental status, nl speech, nl strength Skin: nl turgor, No diaphoresis, No rash or lesions Lymph: nl lymph nodes Results Result Diagram: 09/01/1643909/01/16439 BREE GUZMAN MD Sep 01, 2016 23:16
[2016-09-02] MEDS: PANTOPRAZOLE (EC) 40 MG TAB PO SCH (05:04)
[2016-09-02] MEDS: D5W-0.45 NACL + KCL 20 MEQ 1,000 ML IV SCH ×3 (05:05→19:24)
[2016-09-02 06:02] LABS: BASOPHIL # 0.1 10^3/ul (0.0-0.1); BASOPHILS % 0.7 % (0.0-2.0); EOSINOPHILS # 0.2 10^3/ul (0.0-0.5); EOSINOPHILS % 2.7 % (0.0-7.0); HEMATOCRIT 25.3 % (37.0-47.0); HEMOGLOBIN 8.4 g/dl (12.0-16.0); LYMPHOCYTES % 13.6 % (15.0-51.0); MEAN CORPUSCULAR HEMOGLOBIN 28.5 pg (29.0-33.0); MEAN CORPUSCULAR HGB CONC 33.2 g/dl (32.0-37.0); MEAN CORPUSCULAR VOLUME 85.9 fl (82.0-101.0); MEAN PLATELET VOLUME 6.5 fl (7.4-10.4); MONOCYTE # 0.4 10^3/ul (0.3-0.9); MONOCYTES % 5.5 % (0.0-11.0); NEUTROPHIL # 5.9 10^3/ul (1.6-7.5); NEUTROPHILS % 77.5 % (39.0-77.0); PLATELET COUNT 236 10^3/UL (140-440); RED BLOOD COUNT 2.94 10^6/ul (4.20-5.40); RED CELL DISTRIBUTION WIDTH 15.7 % (11.5-14.5); UNCORRECTED WBC 7.7 10^3/ul (4.8-10.8); WHITE BLOOD COUNT 7.7 10^3/ul (4.8-10.8)
[2016-09-02 06:11] LABS: CONDITION 1; LH ANALYZER COMMENTS 1
[2016-09-02 06:14] LABS: POTASSIUM 4.1 mmol/L (3.5-5.1)
[2016-09-02 06:15] LABS: MAGNESIUM 1.9 mg/dl (1.7-2.5); PHOSPHORUS 2.8 mg/dl (2.5-4.9)
[2016-09-02 06:17] LABS: CALCIUM 9.2 mg/dl (8.4-10.2); CREATININE 0.54 mg/dl (0.44-1.00)
[2016-09-02 08:04] VITALS: BP 130/73; RESP 18
[2016-09-02] MEDS: CHOLECALCIFEROL 2,000 UNIT CAP PO SCH (09:00)
[2016-09-02] MEDS: SOD FERRIC GLUC COMPLX 125 MG in SOD CHLORIDE 0.9% 100 ML IVPB SCH (12:19)
[2016-09-02] MEDS: HYDROCODONE/APAP (5/325) TAB PO PRN ×2 (12:20→23:15)
[2016-09-02] MEDS: ACETAMINOPHEN 325 MG TAB PO PRN (17:43)
--- NOTE | 2016-09-02 19:33 | PN ---
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 Dyslipidemia -diet/med optimization 4. BMI 29 -diet/exercise optimization 5. Hypoalbuminemia -nutritional optimization Thank you, Problems: Subjective 24 Hr Interval Summary No fevers or chills. Gas/stool in bag. Min pain. Mild tachycardia. No cp/ sob. No cough. No vickers/dizzy/visual or neuro changes. No dysuria. Exam/Review of Systems Vital Signs Vitals Vital Signs Date Time Temp Pulse Resp B/P Pulse Ox O2 Delivery O2 Flow Rate FiO2 09/02/16 08:04 98.7 100 18 130/73 96 09/01/16 05:18 Room Air 08/31/16 04:00 2.0 Intake and Output 09/01/16 09/01/16 09/02/16 15:00 23:00 07:00 Intake Total 2110 ml 1780 ml Output Total 30 ml Balance 2080 ml 1780 ml Exam Free Text/Dictation Constitutional: alert, oriented, No distress Psych: nl mood/affect, No anxiety, No confusion Head: atraumatic, normocephalic Eyes: EOMI, PERRL, nl conjunctiva, No icteric ENMT: mucosa pink and moist, nl external ears & nose Neck: non-tender, supple, No jvd Respiratory: normal air movement, No congested cough, No labored breathing Cardiovascular: regular rate and rhythm, No edema Gastrointestinal: other (Colostomy pink), soft, tender (min), No rebound or guarding Musculoskeletal: nl extremities to inspection, nl gait and stance, No joint tenderness Extremities: normal pulses, No calf tenderness, No cyanosis Neurological: nl mental status, nl speech, nl strength Skin: nl turgor, No diaphoresis, No rash or lesions Lymph: nl lymph nodes Results Result Diagram: 09/02/1641909/02/16419 BREE GUZMAN MD Sep 02, 2016 19:33
--- NOTE | 2016-09-02 19:44 | PN ---
Date/Time of Note Date/Time of Note DATE: 09/02/16 TIME: 19:43 Assessment/Plan VTE Prophylaxis VTE Prophylaxis Intervention: SCD's Lines/Catheters IV Catheter Type (from [facility]): Saline Lock Urinary Cath still in place: No Assessment/Plan Chief Complaint/Hosp Course 1. History of perforated diverticulitis with significant pelvic adhesions. Status post laparoscopic sigmoid resection, laparoscopic end colostomy with Jeremy pouch, laparoscopic enterorrhaphy, sigmoidoscopy, implantation of biologic over bladder, vagina and the pelvis. Continue postoperative care. Pain management as per the surgeon. IV fluids as per the surgeon. Encourage early ambulation. Advancement of diet as per surgery. Encourage incentive spirometry 2. Dyslipidemia. Continue statins. Fasting lipid panel satisfactory. 3. Normocytic anemia with iron deficiency. Iron panel showing low iron levels. Continue iron supplements. The patient's H and H will be monitored closely. 4. Vitamin D deficiency. Continue supplements. 5. Fluids, electrolytes, and nutrition. Clear liquid diet. Advancement of diet as per surgery. 6. DVT prophylaxis. Bilateral sequential compression devices. 7. Gastrointestinal prophylaxis. Proton pump inhibitors. 8. Plan. Advancement of diet as per surgery. Encourage frequent ambulation. Encourage frequent use of incentive spirometry. Cont physical therapy Problems: Subjective 24 Hr Interval Summary Constitutional: no complaints Exam/Review of Systems Vital Signs Vitals Vital Signs Date Time Temp Pulse Resp B/P Pulse Ox O2 Delivery O2 Flow Rate FiO2 09/02/16 08:04 98.7 100 18 130/73 96 09/01/16 05:18 Room Air 08/31/16 04:00 2.0 Intake and Output 09/01/16 09/01/16 09/02/16 15:00 23:00 07:00 Intake Total 2110 ml 1780 ml Output Total 30 ml Balance 2080 ml 1780 ml Exam Constitutional: alert, oriented Respiratory: clear to auscultation Cardiovascular: regular rate and rhythm Gastrointestinal: soft, No distended Musculoskeletal: nl extremities to inspection Results Result Diagram: 09/02/1641909/02/16 042 Results 24 hrs Laboratory Tests Test 09/02/16 04:20 Anion Gap 14 Basophils # 0.1 Basophils % 0.7 Blood Morphology Comment Blood Urea Nitrogen 3 L Calcium Level 9.2 Carbon Dioxide Level 26 Chloride Level 105 Creatinine 0.54 Eosinophils # 0.2 Eosinophils % 2.7 Glucose Level 108 Hematocrit 25.3 L Hemoglobin 8.4 L Lymphocytes # 1.0 Lymphocytes % 13.6 L Magnesium Level 1.9 Mean Corpuscular Hemoglobin 28.5 L Mean Corpuscular Hemoglobin Concent 33.2 Mean Corpuscular Volume 85.9 Mean Platelet Volume 6.5 L Monocytes # 0.4 Monocytes % 5.5 Neutrophils # 5.9 Neutrophils % 77.5 H Nucleated Red Blood Cells # 0.0 Nucleated Red Blood Cells % 0.0 Phosphorus Level 2.8 Platelet Count 236 Potassium Level 4.1 Red Blood Count 2.94 L Red Cell Distribution Width 15.7 H Sodium Level 141 White Blood Count 7.7 Medications Medications Current Medications Ondansetron HCl (Zofran Inj) 4 mg Q6H PRN IV NAUSEA AND/OR VOMITING; Start at 16:30 Pantoprazole 40 mg 40 mg DAILY@06 PO Last administered on 09/02/16 05:04; Admin Dose 40 MG; Start 08/31/16 at 06:00 Potassium Chloride/Dextrose/ Sod Cl (D5-1/2ns + KCl 20 Meq) 1,000 ml @ 90 mls/ hr Q11H7M IV Last administered on 09/02/16 19:24; Admin Dose 90 MLS/HR; Start 08/30/16 at 16:19 Acetaminophen/ Hydrocodone Bitart ([place] (5/325)) 2 tab Q4H PRN PO Pain 6-10; Start 08/30/16 at 16:30 Acetaminophen/ Hydrocodone Bitart ([place] (5/325)) 1 tab Q4H PRN PO Pain 1-5 Last administered on 09/02/16 12:20; Admin Dose 1 TAB; Start 08/30/16 at 16:30 Hydromorphone HCl (Dilaudid) 0.5 mg Q2 PRN IV Breakthrough PAIN; Start at 16:30 Atorvastatin Calcium (Lipitor) 20 mg QHS PO Last administered on 09/01/16 21: 13; Admin Dose 20 MG; Start 08/31/16 at 21:00 Cholecalciferol (Vitamin D) 2,000 unit DAILY PO Last administered on 09/02/16 09:00; Admin Dose 2,000 UNIT; Start 09/01/16 at 09:00 Acetaminophen (Tylenol Tab) 650 mg Q6H PRN PO PAIN AND OR ELEVATED TEMP Last administered on 09/02/16t 17:43; Admin Dose 650 MG; Start 08/31/16 at 21:30 DHEERAJ ACOSTA Sep 02, 2016 19:44
[2016-09-02 20:16] VITALS: BP 143/73; RESP 18
[2016-09-02 20:28] VITALS: PULSE 98
[2016-09-02] MEDS: ATORVASTATIN 20 MG TAB PO SCH (20:29)
[2016-09-03] MEDS: D5W-0.45 NACL + KCL 20 MEQ 1,000 ML IV SCH ×2 (05:49→20:10)
[2016-09-03] MEDS: PANTOPRAZOLE (EC) 40 MG TAB PO SCH (05:49)
[2016-09-03 07:42] VITALS: BP 140/68; RESP 18
[2016-09-03] MEDS: CHOLECALCIFEROL 2,000 UNIT CAP PO SCH (09:17)
[2016-09-03] MEDS: HYDROCODONE/APAP (5/325) TAB PO PRN (10:49)
--- NOTE | 2016-09-03 15:00 | PN ---
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 Dyslipidemia -diet/med optimization 4. BMI 29 -diet/exercise optimization 5. Hypoalbuminemia -nutritional optimization Thank you, Problems: Subjective 24 Hr Interval Summary No fevers or chills. Gas/stool in bag. Min pain. Mild tachycardia resolved. No cp/sob. No cough. No vickers/dizzy/visual or neuro changes. No dysuria. Exam/Review of Systems Vital Signs Vitals Vital Signs Date Time Temp Pulse Resp B/P Pulse Ox O2 Delivery O2 Flow Rate FiO2 09/03/16 07:42 98.7 92 18 140/68 97 09/01/16 05:18 Room Air 08/31/16 04:00 2.0 Intake and Output 09/02/16 09/02/16 09/03/16 15:00 23:00 07:00 Intake Total 840 ml 1350 ml Output Total 1330 ml 5 ml Balance -490 ml 1345 ml Exam Free Text/Dictation Constitutional: alert, oriented, No distress Psych: nl mood/affect, No anxiety, No confusion Head: atraumatic, normocephalic Eyes: EOMI, PERRL, nl conjunctiva, No icteric ENMT: mucosa pink and moist, nl external ears & nose Neck: non-tender, supple, No jvd Respiratory: normal air movement, No congested cough, No labored breathing Cardiovascular: regular rate and rhythm, No edema Gastrointestinal: other (Colostomy pink), soft, tender (min), No rebound or guarding Musculoskeletal: nl extremities to inspection, nl gait and stance, No joint tenderness Extremities: normal pulses, No calf tenderness, No cyanosis Neurological: nl mental status, nl speech, nl strength Skin: nl turgor, No diaphoresis, No rash or lesions Lymph: nl lymph nodes Results Result Diagram: 09/02/1641909/02/16419 BREE GUZMAN MD Sep 03, 2016 15:00
--- NOTE | 2016-09-03 16:18 | PN ---
Date/Time of Note Date/Time of Note DATE: 09/03/16 TIME: 16:16 Assessment/Plan VTE Prophylaxis VTE Prophylaxis Intervention: SCD's Lines/Catheters IV Catheter Type (from [facility]): Saline Lock Urinary Cath still in place: No Assessment/Plan Chief Complaint/Hosp Course 1. History of perforated diverticulitis with significant pelvic adhesions. Status post laparoscopic sigmoid resection, laparoscopic end colostomy with Jeremy pouch, laparoscopic enterorrhaphy, sigmoidoscopy, implantation of biologic over bladder, vagina and the pelvis. Continue postoperative care. Pain management as per the surgeon. IV fluids as per the surgeon. Encourage early ambulation. Advancement of diet as per surgery. Encourage incentive spirometry 2. Dyslipidemia. Continue statins. Fasting lipid panel satisfactory. 3. Normocytic anemia with iron deficiency. Iron panel showing low iron levels. Continue iron supplements. The patient's H and H will be monitored closely. 4. Vitamin D deficiency. Continue supplements. 5. Fluids, electrolytes, and nutrition. Clear liquid diet. Advancement of diet as per surgery. 6. DVT prophylaxis. Bilateral sequential compression devices. 7. Gastrointestinal prophylaxis. Proton pump inhibitors. 8. Plan-anticipate DC in a.m. with home health Problems: Subjective 24 Hr Interval Summary Gastrointestinal: pain Exam/Review of Systems Vital Signs Vitals Vital Signs Date Time Temp Pulse Resp B/P Pulse Ox O2 Delivery O2 Flow Rate FiO2 09/03/16 07:42 98.7 92 18 140/68 97 09/01/16 05:18 Room Air 08/31/16 04:00 2.0 Intake and Output 09/02/16 09/02/16 09/03/16 15:00 23:00 07:00 Intake Total 840 ml 1350 ml Output Total 1330 ml 5 ml Balance -490 ml 1345 ml Exam Constitutional: alert, oriented Respiratory: clear to auscultation Cardiovascular: regular rate and rhythm Gastrointestinal: soft, tender, No distended Musculoskeletal: nl extremities to inspection Results Result Diagram: 09/02/1641909/02/16419 Medications Medications Current Medications Ondansetron HCl (Zofran Inj) 4 mg Q6H PRN IV NAUSEA AND/OR VOMITING; Start at 16:30 Pantoprazole 40 mg 40 mg DAILY@06 PO Last administered on 09/03/16t 05:49; Admin Dose 40 MG; Start 08/31/16 at 06:00 Potassium Chloride/Dextrose/ Sod Cl (D5-1/2ns + KCl 20 Meq) 1,000 ml @ 90 mls/ hr Q11H7M IV Last administered on 09/03/16 05:49; Admin Dose 90 MLS/HR; Start 08/30/16 at 16:19 Acetaminophen/ Hydrocodone Bitart ([place] (5/325)) 2 tab Q4H PRN PO Pain 6-10; Start 08/30/16 at 16:30 Acetaminophen/ Hydrocodone Bitart ([place] (5/325)) 1 tab Q4H PRN PO Pain 1-5 Last administered on 09/03/16 10:49; Admin Dose 1 TAB; Start 08/30/16 at 16:30 Hydromorphone HCl (Dilaudid) 0.5 mg Q2 PRN IV Breakthrough PAIN; Start at 16:30 Atorvastatin Calcium (Lipitor) 20 mg QHS PO Last administered on 09/02/16 20: 29; Admin Dose 20 MG; Start 08/31/16 at 21:00 Cholecalciferol (Vitamin D) 2,000 unit DAILY PO Last administered on 09/03/16 09:17; Admin Dose 2,000 UNIT; Start 09/01/16 at 09:00 Acetaminophen (Tylenol Tab) 650 mg Q6H PRN PO PAIN AND OR ELEVATED TEMP Last administered on 09/02/16 17:43; Admin Dose 650 MG; Start 08/31/16 at 21:30 Influenza Virus Vaccine (Fluzone) 0.5 ml ONCE ONCE IM* ; Start 09/04/16 at 09:00 ; Stop 09/04/16 at 09:01 DHEERAJ ACOSTA Sep 03, 2016 16:18
[2016-09-03 19:37] VITALS: BP 131/70; RESP 18
[2016-09-03] MEDS: ATORVASTATIN 20 MG TAB PO SCH (20:11)
[2016-09-03] MEDS: ACETAMINOPHEN 325 MG TAB PO PRN (20:15)
[2016-09-04] MEDS: D5W-0.45 NACL + KCL 20 MEQ 1,000 ML IV SCH (02:22)
[2016-09-04] MEDS: PANTOPRAZOLE (EC) 40 MG TAB PO SCH (05:20)
[2016-09-04 07:00] VITALS: BP 138/61; RESP 20
[2016-09-04] MEDS: CHOLECALCIFEROL 2,000 UNIT CAP PO SCH (08:20)
[2016-09-04] MEDS ORDERED: INFLUENZA VIRUS VACCINE 0.5 ML (DISPENSING) IM* ONE (09:00)
[2016-09-04] MEDS: HYDROCODONE/APAP (5/325) TAB PO PRN (09:09)
--- NOTE | 2016-09-04 12:04 | PN ---
Date/Time of Note Date/Time of Note DATE: 09/04/16 TIME: 12:02 Assessment/Plan Lines/Catheters IV Catheter Type (from [facility]rs): Saline Lock Vogel in Place (from [facility]): No Assessment/Plan Chief Complaint/Hosp Course 1. Colostomy state. Colostomy RN visited and teaching done. -local care and teaching -diet -dc EDISON -dc planning 2 Anemia, iron deficiency -monitor -eventual colonoscopy 3. Dyslipidemia -diet/med optimization 4. BMI 29 -diet/exercise optimization 5. Hypoalbuminemia -nutritional optimization Thank you, Problems: Subjective 24 Hr Interval Summary No fevers or chills. Gas/stool in bag. Min pain. Mild tachycardia resolved. No cp/sob. No cough. No vickers/dizzy/visual or neuro changes. No dysuria. Exam/Review of Systems Vital Signs Vitals Vital Signs Date Time Temp Pulse Resp B/P Pulse Ox O2 Delivery O2 Flow Rate FiO2 09/04/16 07:00 99.0 90 20 138/61 98 09/01/16 05:18 Room Air Intake and Output 09/03/16 09/03/16 09/04/16 15:00 23:00 07:00 Intake Total 1950 ml 1220 ml Output Total 1330 ml 1170 ml Balance 620 ml 50 ml Exam Free Text/Dictation Constitutional: alert, oriented, No distress Psych: nl mood/affect, No anxiety, No confusion Head: atraumatic, normocephalic Eyes: EOMI, PERRL, nl conjunctiva, No icteric ENMT: mucosa pink and moist, nl external ears & nose Neck: non-tender, supple, No jvd Respiratory: normal air movement, No congested cough, No labored breathing Cardiovascular: regular rate and rhythm, No edema Gastrointestinal: Colostomy tip min dark, soft, tender (min), No rebound or guarding Musculoskeletal: nl extremities to inspection, nl gait and stance, No joint tenderness Extremities: normal pulses, No calf tenderness, No cyanosis Neurological: nl mental status, nl speech, nl strength Skin: nl turgor, No diaphoresis, No rash or lesions Lymph: nl lymph nodes Results Result Diagram: 09/02/1641909/02/16419 BREE GUZMAN MD Sep 04, 2016 12:04
--- NOTE | 2016-09-04 14:40 | PDOCDIS ---
Discharge Instructions CONDITION Patient Condition: Good HOME CARE INSTRUCTIONS: Special Diet: SOFT DIET ACTIVITY: Activity Restrictions: Slowly Increase Activity Rest between Activity Avoid heavy lifting Do not Drive Do not operate Machinery Do not operate Power Tool Avoid Heavy Housework Bathing Restrictions: Shower FOLLOW UP/APPOINTMENTS Appointments F/U WITH YOUR PCP IN 1-[address] GUZMAN INSTRUCTED DHEERAJ ACOSTA Sep 04, 2016 14:40
[2016-09-04] MEDS ORDERED: HYDR-3498 PO (14:46)
--- NOTE | 2016-09-04 23:22 | DS ---
DATE OF ADMISSION: 08/30/2016 DATE OF DISCHARGE: 09/04/2016 DISCHARGE DIAGNOSES: 1. Perforated diverticulitis with pelvic adhesions, status post laparoscopic sigmoid resection, col ostomy, and Jeremy pouch placement. The patient has been cleared for discharge with home health. 2. Dyslipidemia. Continue statin. 3. Normocytic anemia secondary to chronic disease. 4. Vitamin D deficiency. Continue supplements. HOSPITAL COURSE: The patient is a 66-year-old female with a history of perforated diverticulitis, p elvic abscess, iron deficiency, and dyslipidemia. The patient likely has anemia of chronic disease and iron deficiency. The patient was brought in for surgery. She had laparoscopic sigmoid resectio n, end colostomy with Jeremy pouch, laparoscopic enterorrhaphy x2, did sigmoidoscopy and implantat ion of biologic over the bladder, vagina, and pelvic raw surfaces. Surgery was done by Dr. Rodriguez on 08/30/2016. Postop diagnosis was perforated diverticulitis, significant intrapelvic adhesions to the bladder and pelvic structures with intraabdominal entire small bowel and sigmoid adhesions. e patient's pain was controlled postoperatively. She was started on physical therapy and did requir e a front-wheel walker. Ultimately, she was cleared for discharge per surgery. Her EDISON drain was re moved. Home health was arranged by case management. On the day of discharge, the patient was clear ed by surgery for discharge. Her vitals, labs, physical exam were stable. Of note, her labs showed normocytic anemia still. This was felt secondary to chronic disease. On the day of discharge, the patient had no acute complaints and her questions were answered. CONDITION ON DISCHARGE: Stable. DISPOSITION: To home with home health. MEDICATIONS: 1. The patient to continue her usual home medications. 2. She was given a prescription for [place] 5/325 one tab p.o. q.4h. p.r.n. for pain. 3. She was told to stop taking her home Bactrim. 4. Otherwise, she was to continue her other home medications. FOLLOWUP: The patient is to follow with her PCP in 1 to [address] Bruce Rodriguez of [facility] as instructed. The patient is also follow up with all her home health agency. The patient was provided with a front-wheel walker. Greater than 30 minutes was spent coordinating discharge of patient. Dictated By: DHEERAJ ACOSTA MD BS/NTS Conf#: [id number] DID#: [id number] CC: CHAPIS VERONICA MD;*End*
== END 2016-09-04 16:15 | disposition home health service (06) | DRG 330 ==
LOC: REC 08:16 → MS1 17:50
PROVIDERS: ADMIT Family Medicine; ATTEND Family Medicine
PROC: 0D1M4Z4 Bypass Descending Colon to Cutaneous, Percutaneous Endoscopic Approach (ICD-10-PCS; 2016-08-30)
PROC: 0DN84ZZ Release Small Intestine, Percutaneous Endoscopic Approach (ICD-10-PCS; 2016-08-30)
PROC: 0DNN4ZZ Release Sigmoid Colon, Percutaneous Endoscopic Approach (ICD-10-PCS; 2016-08-30)
PROC: 0UU Female Reproductive System, Supplement (ICD-10-PCS; 2016-08-30)
PROC: 0DTN4ZZ Resection of Sigmoid Colon, Percutaneous Endoscopic Approach (ICD-10-PCS; principal; 2016-08-30 10:30)
DX: K57.20 Diverticulitis of large intestine with perforation and abscess without bleeding (principal); E55.9 Vitamin D deficiency, unspecified; E78.5 Hyperlipidemia, unspecified; K66.0 Peritoneal adhesions (postprocedural) (postinfection); D50.9 Iron deficiency anemia, unspecified; E88.09 Other disorders of plasma-protein metabolism, not elsewhere classified
CPT/HCPCS: 80048; 80053; 80061; 81001; 81003; 82652; 82728; 83036; 83540; 83735; 84100; 84439; 84443; 85025; 87086; 88307; 90686; 97116; 97162; 97530; J0696; J0698; J1170; J1885; J2175; J2250; J2274; J2370; J2405; J2710; J2765; J2795; J2916; J3475; J3480; J7120; Q4119

== ENCOUNTER 2016-12-24 06:02 | Day surgery (SDC) | payer MEDICARE, OTHER ==
[~2016-12-24] VITALS: Ht 142.2 cm; Wt 58.2 kg
[~2016-12-24 06:02] MED LIST changes: -BACTDS PO; +HYDR-3498 PO; +OMEG500C3 PO; -ONDA4TAB95 PO; -ROCURONIUM 50 MG INJ ONE
[2016-12-24 06:55] VITALS: Ht 142.2 cm; Wt 58.2 kg
[2016-12-24 07:22] VITALS: BP 127/71; PULSE 78; RESP 18
[2016-12-24] MEDS ORDERED: FENTAnyl 50 MCG/ML VIAL ONE (08:31)
[2016-12-24] MEDS ORDERED: MIDAZOLAM 1 MG/ML 2 ML INJ ONE ×2 (08:31)
[2016-12-24] MEDS ORDERED: ALBUTEROL HFA 8 GM INHALER ONE (08:36)
[2016-12-24] MEDS ORDERED: CIPROFLOXACIN 400MG/D5W 200 ML ONE (08:46)
[2016-12-24] MEDS ORDERED: DEXAMETHASONE 4 MG/ML 1 ML INJ ONE (08:46)
[2016-12-24 08:57] VITALS: BP 111/73; RESP 20
--- NOTE | 2016-12-24 13:08 | GILP ---
DATE OF PROCEDURE: 12/24/2016 NAME OF PROCEDURE: Colonoscopy. SURGEON: Mejia Allison MD PREOPERATIVE DIAGNOSES: Screening colonoscopy. POSTOPERATIVE DIAGNOSES: 1. Colonoscopy through colostomy all the way to the cecum. 2. Diverticulosis of the colon. 3. Flexible sigmoidoscopy through the rectum. 4. Residual stool in the rectal pouch. 5. Proctitis. INDICATION FOR THE PROCEDURE: Ms. Lesly Leonardo is a 66-year-old female patient who had perforated diverticulitis which needed emergency surgery and colostomy with a rectosigmoid pouch. The patient was scheduled for screening before revision of colostomy. The procedure and possible complications are well explained to the patient, she understood and conse nted to the procedure. Under the influence of fentanyl and Versed, the colonoscope was carefully in serted through the colostomy and advanced all the way to the cecum. FINDINGS: The patient was noted to have diverticulosis. There was no neoplasm identified. Then, the colonoscope was inserted through the rectum, and the patient was noted to have residual st ool preventing complete examination of the pouch. The patient was noted to have proctitis. She tolerated the procedure very well and there was no complication from the procedure. At the end of the procedure, she was awake with stable vital signs and she was discharged home to the care of h er family. IMPRESSION: 1. Colonoscopy through colostomy all the way to the cecum. 2. Diverticulosis of the colon. 3. No colon neoplasm was identified. 4. Flexible sigmoidoscopy though the rectum. 5. Residual stool in the rectosigmoid pouch. 6. Proctitis. PLAN: 1. The patient may go ahead with the revision of colostomy. 2. Next screening colonoscopy in 10 years. Dictated By: MEJIA HODGE/ADRIANNE Conf#: [id number] DID#: [id number] CC: BREE GUZMAN MD; MEJIA ALLISON MD; CHEYENNE THOMPSON MD;*[facility]*
--- NOTE | 2016-12-25 13:01 | CONS ---
DATE OF ADMISSION: 12/24/2016 DATE OF CONSULTATION: TYPE OF CONSULTATION: Preoperative gastroenterology. Dear Drs. Rodriguez and Yamilet: I thank you very much for this kind referral. HISTORY OF PRESENT ILLNESS: Ms. Lesly Leonardo is a 66-year-old female patient who has been referre d to me for evaluation before revision of colostomy. The patient had perforated diverticulitis for which patient has undergone surgery, and she has history of colostomy. She also has a rectosigmoid pouch. Revision of colostomy is being planned, and the patient needs screening colonoscopy before r evision. There is no past history of colon neoplasm. Her appetite has been good, and she is not lo sing any weight. She does not have any upper abdominal pain, nausea or vomiting. There is no histo ry of peptic ulcer disease. She is not taking any nonsteroidal anti-inflammatory agents. There is no history of gallstones. She does not have any fever, chills or jaundice. There is no history of liver disease. She is not a hypertensive or diabetic. She does not have any heart disease or lung problem. There is no history of kidney disease. She has hyperlipidemia. SOCIAL HISTORY: She is a nonsmoker. She does not abuse alcohol. FAMILY HISTORY: Negative for gastrointestinal tract neoplasm. ALLERGIES: THERE IS NO HISTORY OF SIGNIFICANT DRUG ALLERGY. MEDICATIONS: Atorvastatin 10 mg p.o. PHYSICAL EXAMINATION: VITAL SIGNS: She is 4 feet 8 inches tall, and she weighs 130 pounds. BMI 28. Blood pressure 120/7 2. HEART: Normal first and second heart sounds. LUNGS: Clear. ABDOMEN: Soft without any distention. Liver and spleen not palpable. There are no masses. The pa rajni has got a colostomy bag. Normal bowel sounds are heard. CENTRAL NERVOUS SYSTEM: Examination does not reveal any focal neurological deficit. IMPRESSION: 1. Status post perforated diverticulitis with colostomy and rectal pouch. 2. The patient needs screening colonoscopy before the revision of colostomy. 3. Hyperlipidemia. 4. Elevated body mass index. PLAN: 1. Colonoscopy through colostomy and sigmoidoscopy through the rectum before revision of the colost rai. 2. Follow up with the primary MD for the management of elevated BMI and for watching the blood pres sure. The procedure and possible complications are well explained to the patient. She understands and con sents to the procedures. I thank you once again. With warmest personal regards, Dictated By: BÁRBARA HODGE/ADRIANNE Conf#: [id number] DID#: [id number]
== END 2016-12-24 09:16 | disposition home or self-care (01) ==
LOC: GIL 06:02
PROVIDERS: ATTEND Internal Medicine Gastroenterology
DX: Z12.11 Encounter for screening for malignant neoplasm of colon (principal); K57.90 Diverticulosis of intestine, part unspecified, without perforation or abscess without bleeding; K62.89 Other specified diseases of anus and rectum; E78.5 Hyperlipidemia, unspecified
CPT/HCPCS: 45330; J0744; J1100; J2250; J3010

== ENCOUNTER 2016-12-27 05:52 | Inpatient (IN) | payer MEDICARE, OTHER ==
[2016-12-26 09:36] VITALS: BMI 27.2
[2016-12-27] VITALS (14 sets, daily range): BP systolic 107–144; BP diastolic 61–83; PULSE 62–90; RESP 12–20; Ht 142.2 cm; Wt 57.2 kg
[~2016-12-27] VITALS: Ht 142.2 cm; Wt 57.2 kg
[~2016-12-27 05:52] MED LIST changes: -HYDR-3498 PO
[2016-12-27] MEDS ORDERED: ROCURONIUM 50 MG INJ ONE ×2 (08:02→11:19)
[2016-12-27] MEDS ORDERED: FENTAnyl 50 MCG/ML VIAL ONE (08:02)
[2016-12-27] MEDS ORDERED: CEFAZOLIN 1 GM INJ ONE (08:02)
[2016-12-27] MEDS ORDERED: NEOSTIGMINE 3 MG/3 ML SYRINGE ONE ×2 (08:02→12:05)
[2016-12-27] MEDS ORDERED: PROPOFOL 100 ML ONE (08:02)
[2016-12-27] MEDS ORDERED: PROPOFOL 0 ML ONE (08:02)
[2016-12-27] MEDS ORDERED: MIDAZOLAM 1 MG/ML 2 ML INJ ONE (08:02)
[2016-12-27] MEDS ORDERED: morphine SULFATE/PF (10 MG/10 ML) INJ ONE (08:02)
[2016-12-27] MEDS ORDERED: DEXAMETHASONE 4 MG/ML 1 ML INJ ONE (08:02)
[2016-12-27] MEDS ORDERED: ONDANSETRON 4 MG INJ ONE (08:02)
[2016-12-27] MEDS ORDERED: GLYCOPYRROLATE 0.4 MG INJ ONE ×2 (08:02→12:05)
--- NOTE | 2016-12-27 09:00 | HPN ---
Date/Time of Note Date/Time of Note DATE: 12/27/16 TIME: 08:59 Interval H&P Admission Note Pt. seen H&P reviewed: Systems changes noted below Patient reports after colonoscopy having some minimally bloody discharge from the rectum BREE GUZMAN MD December 27, 2016 09:00
[2016-12-27] MEDS ORDERED: metroNIDAZOLE 500 MG/NS (PMX) 100 ML IVPB ONE (09:24)
[2016-12-27] MEDS ORDERED: LABETALOL HCL 20MG INJ IV PRN (10:00)
[2016-12-27] MEDS ORDERED: HYDROmorphONE (0.2 MG/ML) 10ML SYG IV PRN ×3 (10:00)
[2016-12-27] MEDS ORDERED: ONDANSETRON 4 MG INJ IV PRN ×3 (10:00→13:00)
[2016-12-27] MEDS ORDERED: EPHEDrine SULFATE 50 MG/5 ML SYG IV PRN (10:00)
[2016-12-27] MEDS ORDERED: MIDAZOLAM 1 MG/ML 2 ML INJ IV PRN (10:00)
[2016-12-27] MEDS ORDERED: MEPERIDINE 25 MG INJ IV PRN (10:00)
[2016-12-27] MEDS ORDERED: hydrALAzine 20 MG INJ IV PRN (10:00)
[2016-12-27] MEDS ORDERED: DIPHENHYDRAMINE 50 MG INJ IV PRN ×2 (10:00)
[2016-12-27] MEDS ORDERED: FENTAnyl 50 MCG/ML VIAL IV PRN ×3 (10:00)
[2016-12-27] MEDS ORDERED: HYDROmorphONE 1 MG/ML SYG IV PRN ×3 (10:00→13:00)
[2016-12-27] MEDS ORDERED: NALBUPHINE HCL (10 MG/1 ML) INJ IV PRN (10:00)
[2016-12-27] MEDS ORDERED: NALOXONE (0.4 MG/ML) INJ IV PRN (10:00)
[2016-12-27] MEDS ORDERED: TRIMETHOBENZAMIDE 100 MG/ML VIAL IM PRN ×2 (10:00)
[2016-12-27] MEDS ORDERED: HYDROCODONE/APAP (5/325) TAB PO PRN (13:00)
--- NOTE | 2016-12-27 13:00 | OPR ---
Date/Time of Note Date/Time of Note DATE: 12/27/16 TIME: 13:00 Operative Report Procedure Date: December 27, 2016 Procedure Description Preoperative Diagnosis: 1. Colostomy state 2. History of colorectal perforation 3. BMI 28 Postoperative Diagnosis: 1. Colostomy state 2. History of colorectal perforation 3. BMI 28 Operation Performed: 1. Laparoscopic colostomy reversal/takedown 2. Laparoscopic low colo-distal rectal anastomosis 3. Laparoscopic partial left colectomy 4. Laparoscopic splenic mobilization 5. Rigid sigmoidoscopy 6. Implantation of biologic over anastomosis to improve healing and decrease adhesions 7. Local anesthetic injection, [id number] 8. Laparoscopic bilateral transversus abdominis plane block Surgeon: BREE GUZMAN MD Anesthesia: general + local + regional Anesthesiologist: Shaheen Cevallos MD Estimated Blood Loss: 10 ml's Specimens: 1. Anastomotic rings 2. Distal colon/colostomy edge Tubes/Drains: Quarter inch [place] Complications: None Pt Condition Post Procedure: stable Disposition: PACU Indications 66-year-old female with history of colorectal perforation requiring colostomy. Patient is now here for colostomy reversal. Risks include but are not limited to bleeding, infection, abscess, seroma, leak , damage to intestines or any intra-abdominal/intrapelvic structures, hernia formation, chronic pain, need for re-operations or further surgeries, CT, stroke , PE, DVT, pneumonia, organ failures, or even . Procedure Description: Patient was brought into the operating room, placed supine on the operating table, SCDs were placed, right arm was tucked, all pressure points were well- padded, preoperative antibiotics administered, and after induction of anesthesia , patient was placed in the lithotomy. Vogel was inserted. Patient was then prepped and draped in usual sterile fashion, and timeout was performed. Incision was made in the right upper quadrant, and using an Optiview port and 5 mm 0 scope abdomen was safely entered and insufflated to 15 mmHg with CO2. Laparoscopy was performed and no injuries were identified. There was adhesions of the small bowel to colostomy left lower quadrant. However most of the adhesions were of small bowel in the pelvis. Under direct visualization another 5 mm port was placed in the right lower quadrant a 12 mm port was placed in the right lower lateral quadrant. Eventually a 5 mm port was placed in the left upper quadrant. Patient was placed in Trendelenburg and left side up. Pelvis was investigated. There was dense small bowel adhesions to the pelvis. Those were taken down sharply and bluntly without any injury this part of the procedure took the longest since I had to be very meticulous and slow. The adhesions of small bowel to the colostomy were also taken down. Rigid sigmoidoscopy was performed and the rectal stump was found to be short. There was few stool hard balls there which were removed manually. The vaginal cuff and the bladder were easily off of the rectal stump. The rectal stump did not feel thickened. The colostomy edge was cut away from the skin using electrocautery and with gentle dissection the distal colon was from the subcutaneous tissue and then the fascia and peritoneum circumferentially preserving the entire colon. Hemostasis was obtained. Automatic pursestring suture device was used on the healthy distal colon and then unhealthy distal colon was transected and sent to pathology. EEA 29 anvil was placed into the distal colon and secured with the previously placed pursestring suture. Care was taken to put back the EEA anvil and the distal colon back into the abdomen under direct visualization. Harry GelPort was applied at the site to preserve insufflation. At this point the proximal colon was not sufficiently reaching the rectal stump in the pelvis to allow tension free anastomosis. Decision was made to proceed with splenic mobilization. Using sharp dissection and energy device I was able to mobilize the proximal descending colon further from the abdominal wall and the spleen. The omentum was taken off the splenic flexure and the splenic flexure was further mobilized inferiorly. After full mobilization of the splenic flexure we were able to obtain sufficient length for the anastomosis without any tension. EEA stapler was placed through the rectum into the rectal stump under direct visualization. The needle was opened through the rectal stump and the anvil was attached to the needle and full circular stapled anastomosis was created. After removal of the EEA full doughnuts 2 were identified. Proximal colon was clamped and using a rigid sigmoidoscope and air was insufflated into the rectum with distention of the anastomotic site under saline in the pelvis without any air bubbles leaking. Rigid sigmoidoscopy was performed up to 15 cm with healthy stapled anastomosis without any active bleeding. Fluid was suctioned out. To reinforce the stapled anastomosis, improve healing, and decrease adhesions, 10 x 15 cm 3 layer ACell, xenograft biologic tissue, was implanted on top of the anastomosis in the pelvis. Small bowel was ran from terminal ileum to augment of Treitz without any twisting or further scarring. The bowel was laid flat in the abdomen and pelvis. 12 m port site fascia was closed with Endo Close and 0 Vicryl in a figure-of- eight manner. There was complete hemostasis. Ports and CO2 were removed under direct visualization. Wounds were thoroughly irrigated and skin was closed with 4-0 Monocryl subcuticular fashion. Dermabond was applied. The colostomy site wound was closed in multiple layers. Initially the peritoneum was closed with 2-0 Vicryl in a running fashion. Fascial defect was closed with interrupted #1 Vicryls in a [id number] manner. Subcutaneous tissue was closed in multiple layers with interrupted 2-0 Vicryl suture. There was irrigation with saline and Betadine between each closing layer. Quarter inch [place] drain was placed above the fascia and below the subcutaneous tissue and the edges secured to the skin surface using 2-0 nylon. Skin was stapled loosely and then 4 x 4 and tape were applied to the surface of this wound. All counts were correct and the end of the operation 2. Patient was extubated and transferred to recovery room in stable condition. BREE GUZMAN MD December 27, 2016 13:00
[2016-12-27] MEDS: CEFAZOLIN 2 GM/50 ML (PMX) 50 ML IVPB SCH ×2 (15:32→21:25)
[2016-12-27] MEDS: D5W-0.45 NACL + KCL 20 MEQ 1,000 ML IV SCH (15:32)
[2016-12-27] MEDS: metroNIDAZOLE 500 MG/NS (PMX) 100 ML IVPB SCH ×2 (16:28→22:11)
--- NOTE | 2016-12-27 19:38 | CONS ---
DATE OF ADMISSION: 12/27/2016 DATE OF CONSULTATION: 12/27/2016 REASON FOR CONSULTATION: Medical management. HISTORY OF PRESENT ILLNESS: The patient is a 66-year-old female with history of perforated divertic ulitis with pelvic adhesions, status post laparoscopic sigmoid resection with colostomy and Jeremy pouch placement, and now being brought back for elective surgery for reversal of ostomy. The patie nt had surgery today, which she had laparoscopic colostomy reversal takedown with Dr. Rodriguez. The patient had no complaints at this time. PAST MEDICAL HISTORY: As per HPI. PAST SURGICAL HISTORY: History of laparoscopic sigmoid resection, now with reversal. HOME MEDICATIONS: 1. Lipitor. 2. Vitamin D. 3. Lactobacillus. 4. Fish oil. ALLERGIES: NO KNOWN DRUG ALLERGIES. FAMILY HISTORY: Noncontributory. SOCIAL HISTORY: Denies any alcohol, tobacco or drugs. REVIEW OF SYSTEMS: A 12-point review of systems negative, except as in HPI. PHYSICAL EXAMINATION: VITAL SIGNS: Temperature is 97.8, pulse 90, respiratory rate 17, BP is 143/82, saturation 97% on 2 liters. GENERAL: In no acute distress, alert and oriented. HEENT: Normocephalic, atraumatic. LUNGS: Clear to auscultation. CARDIOVASCULAR: Regular rate and rhythm. ABDOMEN: Nondistended, nontender, soft. Surgical scar covered in dressings. EXTREMITIES: No clubbing, cyanosis, or edema. LABORATORY: No labs available at this time. ASSESSMENT AND PLAN: 1. History of perforated diverticulitis with laparoscopic sigmoid resection and [facility], now having been brought back for colostomy reversal. The patient is stable at this time. Would treat any potential pain with morphine as needed. 2. Dyslipidemia. Hold statin for now. 3. Vitamin D deficiency. Hold supplements for now. 4. Prophylaxis: SCDs. Dictated By: DHEERAJ ACOSTA MD BS/NTS Conf#: [id number] DID#: [id number]
[2016-12-28] MEDS: D5W-0.45 NACL + KCL 20 MEQ 1,000 ML IV SCH ×2 (04:46→18:03)
[2016-12-28 05:12] LABS: ADD SCAN DIFF NO
[2016-12-28 05:26] LABS: BASOPHILS % 0.1 % (0.0-2.0); HEMATOCRIT 32.9 % (37.0-47.0); HEMOGLOBIN 10.5 g/dl (12.0-16.0); LYMPHOCYTES # 0.9 10^3/ul (0.8-2.9); LYMPHOCYTES % 9.4 % (15.0-51.0); MEAN CORPUSCULAR HEMOGLOBIN 26.5 pg (29.0-33.0); MEAN CORPUSCULAR HGB CONC 31.9 g/dl (32.0-37.0); MEAN CORPUSCULAR VOLUME 83.1 fl (82.0-101.0); MEAN PLATELET VOLUME 9.2 fl (7.4-10.4); MONOCYTE # 0.6 10^3/ul (0.3-0.9); MONOCYTES % 6.6 % (0.0-11.0); NEUTROPHIL # 7.6 10^3/ul (1.6-7.5); NEUTROPHILS % 83.5 % (39.0-77.0); PLATELET COUNT 216 10^3/UL (140-415); RED BLOOD COUNT 3.96 10^6/ul (4.20-5.40); RED CELL DISTRIBUTION WIDTH 14.9 % (11.5-14.5); WHITE BLOOD COUNT 9.1 10^3/ul (4.8-10.8)
[2016-12-28] MEDS: PANTOPRAZOLE (EC) 40 MG TAB PO SCH (06:09)
[2016-12-28] MEDS: CEFAZOLIN 2 GM/50 ML (PMX) 50 ML IVPB SCH (06:09)
[2016-12-28 06:18] LABS: ALBUMIN 3.5 g/dl (3.3-4.9)
[2016-12-28 06:19] LABS: POTASSIUM 4.4 mmol/L (3.5-5.1)
[2016-12-28 06:21] LABS: ALBUMIN/GLOBULIN RATIO 1.02; BILIRUBIN,INDIRECT 0.2 mg/dl (0-1.1); BILIRUBIN,TOTAL 0.2 mg/dl (0.2-1.3); CREATININE 0.62 mg/dl (0.44-1.00); TOTAL PROTEIN 6.9 g/dl (6.1-8.1)
[2016-12-28 06:22] LABS: CALCIUM 9.3 mg/dl (8.4-10.2)
[2016-12-28] MEDS: metroNIDAZOLE 500 MG/NS (PMX) 100 ML IVPB SCH (06:44)
[2016-12-28] MEDS: ENOXAPARIN 40 MG/0.4 ML SYG SC SCH (06:48)
[2016-12-28 07:29] VITALS: BP 124/64; RESP 15
[2016-12-28] MEDS: HYDROCODONE/APAP (5/325) TAB PO PRN (10:55)
[2016-12-28 12:00] VITALS: BP 130/75; PULSE 74; RESP 17
--- NOTE | 2016-12-28 15:22 | PN ---
Date/Time of Note Date/Time of Note DATE: 12/28/16 TIME: 15:19 Assessment/Plan VTE Prophylaxis VTE Prophylaxis Intervention: SCD's Lines/Catheters IV Catheter Type (from Nrs): Peripheral IV Assessment/Plan Chief Complaint/Hosp Course 1. History of perforated diverticulitis with laparoscopic sigmoid resection and colostomy status post colostomy reversal postop day #1 -Currently n.p.o. and diet to be advanced pe -Pain control 2. Dyslipidemia - Hold statin for now 3. Vitamin D deficiency. -Hold supplements for now. 4. Prophylaxis: SCDs. Problems: Subjective 24 Hr Interval Summary Gastrointestinal: pain Exam/Review of Systems Vital Signs Vitals Vital Signs Date Time Temp Pulse Resp B/P Pulse Ox O2 Delivery O2 Flow Rate FiO2 12/28/16 07:29 99.4 102 15 124/64 100 12/27/16 20:22 Nasal Cannula 2.0 Intake and Output 12/27/16 12/27/16 12/28/16 15:00 23:00 07:00 Intake Total 3000 ml 280 ml 1070 ml Output Total 75 ml 450 ml 1600 ml Balance 2925 ml -170 ml -530 ml Exam Constitutional: alert Respiratory: clear to auscultation Cardiovascular: regular rate and rhythm Gastrointestinal: soft, No distended Musculoskeletal: nl extremities to inspection Results Result Diagram: 12/28/16 0435 12/28/16 0435 Results 24 hrs Laboratory Tests Test 12/28/16 04:35 White Blood Count 9.1 Red Blood Count 3.96 #L Hemoglobin 10.5 #L Hematocrit 32.9 #L Mean Corpuscular Volume 83.1 Mean Corpuscular Hemoglobin 26.5 L Mean Corpuscular Hemoglobin Concent 31.9 L Red Cell Distribution Width 14.9 H Platelet Count 216 Mean Platelet Volume 9.2 # Neutrophils % 83.5 H Lymphocytes % 9.4 L Monocytes % 6.6 Eosinophils % 0.0 Basophils % 0.1 Nucleated Red Blood Cells % 0.0 Neutrophils # 7.6 H Lymphocytes # 0.9 Monocytes # 0.6 Eosinophils # 0.0 Basophils # 0.0 Nucleated Red Blood Cells # 0.0 Sodium Level 135 Potassium Level 4.4 Chloride Level 99 Carbon Dioxide Level 27 Anion Gap 13 Blood Urea Nitrogen 8 Creatinine 0.62 Glucose Level 123 Calcium Level 9.3 Total Bilirubin 0.2 Direct Bilirubin 0.00 Indirect Bilirubin 0.2 Aspartate Amino Transf (AST/SGOT) 21 Alanine Aminotransferase (ALT/SGPT) 23 Alkaline Phosphatase 60 Total Protein 6.9 Albumin 3.5 Globulin 3.40 H Albumin/Globulin Ratio 1.02 Medications Medications Current Medications Ondansetron HCl (Zofran Inj) 4 mg Q6H PRN IV NAUSEA AND/OR VOMITING; Start 08/03 at 13:00 Pantoprazole 40 mg 40 mg DAILY@06 PO Last administered on 12/28/16 06:09; Admin Dose 40 MG; Start 12/28/16 at 06:00 Potassium Chloride/Dextrose/ Sod Cl (D5-1/2ns + KCl 20 Meq) 1,000 ml @ 80 mls/ hr [id number] IV Last administered on 12/28/16 04:46; Admin Dose 80 MLS/HR; Start 12/27/16 at 12:52 Enoxaparin Sodium (Lovenox) 40 mg DAILY@07 SC Last administered on 12/28/16 06 :48; Admin Dose 40 MG; Start 12/28/16 at 07:00 Acetaminophen/ Hydrocodone Bitart ([place] (5/325)) 2 tab Q4H PRN PO Pain 6-10; Start 12/27/16 at 13:00 Acetaminophen/ Hydrocodone Bitart ([place] (5/325)) 1 tab Q4H PRN PO Pain 1-5 Last administered on 12/28/16 10:55; Admin Dose 1 TAB; Start 12/27/16 at 13:00 Hydromorphone HCl (Dilaudid) 0.5 mg Q2 PRN IV Breakthrough PAIN; Start at 13:00 DHEERAJ ACOSTA December 28, 2016 15:22
[2016-12-28 19:38] VITALS: BP 122/60; RESP 18
[2016-12-29] MEDS: D5W-0.45 NACL + KCL 20 MEQ 1,000 ML IV SCH ×2 (04:40→13:08)
[2016-12-29 05:10] LABS: ADD SCAN DIFF NO
[2016-12-29 05:12] LABS: BASOPHILS % 0.2 % (0.0-2.0); EOSINOPHILS # 0.2 10^3/ul (0.0-0.5); EOSINOPHILS % 2.1 % (0.0-7.0); HEMATOCRIT 31.8 % (37.0-47.0); HEMOGLOBIN 10.3 g/dl (12.0-16.0); LYMPHOCYTES # 1.1 10^3/ul (0.8-2.9); LYMPHOCYTES % 12.4 % (15.0-51.0); MEAN CORPUSCULAR HEMOGLOBIN 26.6 pg (29.0-33.0); MEAN CORPUSCULAR HGB CONC 32.4 g/dl (32.0-37.0); MEAN CORPUSCULAR VOLUME 82.2 fl (82.0-101.0); MEAN PLATELET VOLUME 9.1 fl (7.4-10.4); MONOCYTE # 0.7 10^3/ul (0.3-0.9); MONOCYTES % 7.9 % (0.0-11.0); NEUTROPHIL # 6.9 10^3/ul (1.6-7.5); PLATELET COUNT 206 10^3/UL (140-415); RED BLOOD COUNT 3.87 10^6/ul (4.20-5.40); RED CELL DISTRIBUTION WIDTH 15.4 % (11.5-14.5)
[2016-12-29 05:51] LABS: CALCIUM 9.3 mg/dl (8.4-10.2); CREATININE 0.63 mg/dl (0.44-1.00); MAGNESIUM 1.8 mg/dl (1.7-2.5); PHOSPHORUS 2.9 mg/dl (2.5-4.9); POTASSIUM 4.1 mmol/L (3.5-5.1)
[2016-12-29] MEDS: PANTOPRAZOLE (EC) 40 MG TAB PO SCH (06:14)
[2016-12-29] MEDS: ENOXAPARIN 40 MG/0.4 ML SYG SC SCH (06:18)
[2016-12-29 08:06] VITALS: BP 112/68; RESP 16
[2016-12-29 14:27] LABS: ADD UMIC YES; URINE BILIRUBIN (Dip) NEGATIVE (NEGATIVE); URINE BLOOD (Dip) 2+ (NEGATIVE); URINE COLOR LT. YELLOW (YELLOW); URINE GLUCOSE (Dip) NEGATIVE (NEGATIVE); URINE KETONES (Dip) NEGATIVE (NEGATIVE); URINE LEUKOCYTE ESTERASE (Dip) NEGATIVE (NEGATIVE); URINE NITRITE (Dip) NEGATIVE (NEGATIVE); URINE TOTAL PROTEIN (Dip) NEGATIVE (NEGATIVE); URINE UROBILINOGEN (Dip) 0.2 E.U./dL (0.1-1.0)
[2016-12-29 14:54] LABS: URINE RBCS 25-50 /HPF (0)
--- NOTE | 2016-12-29 19:30 | PN ---
Date/Time of Note Date/Time of Note DATE: 12/29/16 TIME: 19:29 Assessment/Plan VTE Prophylaxis VTE Prophylaxis Intervention: SCD's Lines/Catheters IV [facility] ([facility] Peripheral IV Urinary Cath still in place: No Assessment/Plan Chief Complaint/Hosp Course 1. History of perforated diverticulitis with laparoscopic sigmoid resection and colostomy status post colostomy reversal postop day #1 -Currently n.p.o. and diet to be advanced per surgery -Pain control 2. Dyslipidemia - Hold statin for now 3. Vitamin D deficiency. -Hold supplements for now. 4. Prophylaxis: SCDs. Problems: Subjective 24 Hr Interval Summary Constitutional: no complaints Exam/Review of Systems Vital Signs Vitals Vital Signs Date Time Temp Pulse Resp B/P Pulse Ox O2 Delivery O2 Flow Rate FiO2 12/29/16 08:06 99.0 98 16 112/68 96 12/28/16 12:00 Room Air 12/27/16 20:22 2.0 Intake and Output 12/28/16 12/28/16 12/29/16 15:00 23:00 07:00 Intake Total 100 ml 1000 ml 80 ml Output Total 700 ml 1400 ml Balance 100 ml 300 ml -1320 ml Exam Constitutional: alert, oriented Respiratory: clear to auscultation Cardiovascular: regular rate and rhythm Gastrointestinal: soft, No distended Musculoskeletal: nl extremities to inspection Results Result Diagram: 12/29/16 0430 12/29/16 0430 Results 24 hrs Laboratory Tests Test 12/29/16 04:30 12/29/16 04:45 White Blood Count 9.0 Red Blood Count 3.87 L Hemoglobin 10.3 L Hematocrit 31.8 L Mean Corpuscular Volume 82.2 Mean Corpuscular Hemoglobin 26.6 L Mean Corpuscular Hemoglobin Concent 32.4 Red Cell Distribution Width 15.4 H Platelet Count 206 Mean Platelet Volume 9.1 Neutrophils % 77.0 Lymphocytes % 12.4 L Monocytes % 7.9 Eosinophils % 2.1 Basophils % 0.2 Nucleated Red Blood Cells % 0.0 Neutrophils # 6.9 Lymphocytes # 1.1 Monocytes # 0.7 Eosinophils # 0.2 Basophils # 0.0 Nucleated Red Blood Cells # 0.0 Sodium Level 131 L Potassium Level 4.1 Chloride Level 100 Carbon Dioxide Level 26 Anion Gap 9 Blood Urea Nitrogen 6 L Creatinine 0.63 Glucose Level 133 Calcium Level 9.3 Phosphorus Level 2.9 Magnesium Level 1.8 Urine Color LT. YELLOW Urine Clarity CLEAR Urine pH 7.5 Urine Specific Ensign 1.015 Urine Ketones NEGATIVE Urine Nitrite NEGATIVE Urine Bilirubin NEGATIVE Urine Urobilinogen 0.2 E.U./dL Urine Leukocyte Esterase NEGATIVE Urine Microscopic RBC 25-50 Urine Microscopic WBC 2-5 Urine Hemoglobin 2+ H Urine Glucose NEGATIVE Urine Total Protein NEGATIVE Medications Medications Current Medications Ondansetron HCl (Zofran Inj) 4 mg Q6H PRN IV NAUSEA AND/OR VOMITING; Start 08/03 at 13:00 Pantoprazole 40 mg 40 mg DAILY@06 PO Last administered on 12/29/16 06:14; Admin Dose 40 MG; Start 12/28/16 at 06:00 Potassium Chloride/Dextrose/ Sod Cl (D5-1/2ns + KCl 20 Meq) 1,000 ml @ 80 mls/ hr [id number] IV Last administered on 12/29/16 04:40; Admin Dose 80 MLS/HR; Start 12/27/16 at 12:52 Enoxaparin Sodium (Lovenox) 40 mg DAILY@07 SC Last administered on 12/29/16 06 :18; Admin Dose 40 MG; Start 12/28/16 at 07:00 Acetaminophen/ Hydrocodone Bitart ([place] (5/325)) 2 tab Q4H PRN PO Pain 6-10; Start 12/27/16 at 13:00 Acetaminophen/ Hydrocodone Bitart ([place] (5/325)) 1 tab Q4H PRN PO Pain 1-5 Last administered on 12/28/16 10:55; Admin Dose 1 TAB; Start 12/27/16 at 13:00 Hydromorphone HCl (Dilaudid) 0.5 mg Q2 PRN IV Breakthrough PAIN Last administered on 12/29/16 10:27; Admin Dose 0.5 MG; Start 12/27/16 at 13:00 DHEERAJ ACOSTA December 29, 2016 19:30
[2016-12-29 19:54] VITALS: BP 133/66; RESP 16
[2016-12-30] MEDS: HYDROCODONE/APAP (5/325) TAB PO PRN ×2 (03:28→11:00)
[2016-12-30] MEDS: D5W-0.45 NACL + KCL 20 MEQ 1,000 ML IV SCH ×2 (03:32→16:18)
[2016-12-30 05:09] LABS: ADD SCAN DIFF NO
[2016-12-30 05:18] LABS: BASOPHILS % 0.3 % (0.0-2.0); EOSINOPHILS # 0.4 10^3/ul (0.0-0.5); EOSINOPHILS % 5.2 % (0.0-7.0); HEMATOCRIT 32.9 % (37.0-47.0); HEMOGLOBIN 10.6 g/dl (12.0-16.0); LYMPHOCYTES # 1.2 10^3/ul (0.8-2.9); LYMPHOCYTES % 16.6 % (15.0-51.0); MEAN CORPUSCULAR HEMOGLOBIN 26.5 pg (29.0-33.0); MEAN CORPUSCULAR HGB CONC 32.2 g/dl (32.0-37.0); MEAN CORPUSCULAR VOLUME 82.3 fl (82.0-101.0); MEAN PLATELET VOLUME 9.1 fl (7.4-10.4); MONOCYTE # 0.7 10^3/ul (0.3-0.9); MONOCYTES % 8.9 % (0.0-11.0); NEUTROPHILS % 68.5 % (39.0-77.0); PLATELET COUNT 219 10^3/UL (140-415); RED CELL DISTRIBUTION WIDTH 15.1 % (11.5-14.5); WHITE BLOOD COUNT 7.3 10^3/ul (4.8-10.8)
[2016-12-30 05:49] LABS: POTASSIUM 4.1 mmol/L (3.5-5.1)
[2016-12-30 05:52] LABS: CALCIUM 9.5 mg/dl (8.4-10.2); CREATININE 0.64 mg/dl (0.44-1.00)
[2016-12-30] MEDS: ENOXAPARIN 40 MG/0.4 ML SYG SC SCH (06:23)
[2016-12-30] MEDS: PANTOPRAZOLE (EC) 40 MG TAB PO SCH (06:23)
[2016-12-30 09:14] VITALS: BP 106/61; RESP 18
--- NOTE | 2016-12-30 11:30 | PN ---
Date/Time of Note Date/Time of Note DATE: 12/28/16 TIME: 11:26 Assessment/Plan Lines/Catheters IV Catheter Type (from [facility]): Peripheral IV Vogel in Place (from [facility]): No Assessment/Plan Chief Complaint/Hosp Course 1. Paralytic ileus -oob/ambulate -chew gum 2. Anemia without blood loss -monitor 3. Dyslipidemia -diet/med optimization 4. BMI 28 -eventual diet/exercise optimization Thank you, Late entry 12/28 Problems: Subjective 24 Hr Interval Summary Min pain. No flatus or bm. No cough. No sz/rash. No vickers/dizziness/visual or neuro changes. No dysuria. Exam/Review of Systems Vital Signs Vitals Vital Signs Date Time Temp Pulse Resp B/P Pulse Ox O2 Delivery O2 Flow Rate FiO2 12/30/16 09:14 98.3 88 18 106/61 96 12/28/16 12:00 Room Air 12/27/16 20:22 2.0 Intake and Output 12/29/16 12/29/16 12/30/16 15:00 23:00 07:00 Intake Total 920 ml 1320 ml Output Total 1200 ml 1100 ml Balance -280 ml 220 ml Exam Constitutional: alert, oriented, No distress Psych: nl mood/affect, No anxiety, No confusion Head: atraumatic, normocephalic Eyes: EOMI, PERRL, nl conjunctiva, No icteric ENMT: mucosa pink and moist, nl external ears & nose, nl lips & teeth Neck: non-tender, supple, No jvd Respiratory: normal air movement, No congested cough, No labored breathing Cardiovascular: regular rate and rhythm, No edema Gastrointestinal: soft, tender (Min. ), No distended, No rebound or guarding Musculoskeletal: nl extremities to inspection, nl gait and stance, No joint tenderness Extremities: normal pulses, No calf tenderness, No cyanosis Neurological: nl mental status, nl speech, nl strength Skin: nl turgor, rash or lesions (LLQ wound with sutures and david. No foul odor. No purulent dc.), No diaphoresis Lymph: nl lymph nodes, nontender Results Result Diagram: 12/30/160 12/30/16439 BREE GUZMAN MD December 30, 2016 11:30
--- NOTE | 2016-12-30 11:32 | PN ---
Date/Time of Note Date/Time of Note DATE: 12/29/16 TIME: 22:30 Assessment/Plan Lines/Catheters IV Catheter Type (from [facility]): Peripheral IV Vogel in Place (from [facility]): No Assessment/Plan Chief Complaint/Hosp Course 1. Paralytic ileus. Improving -oob/ambulate -full liq 2. Anemia without blood loss -monitor 3. Dyslipidemia -diet/med optimization 4. BMI 28 -eventual diet/exercise optimization Thank you, Late entry 12/29 Problems: Subjective 24 Hr Interval Summary Min pain. Flatus. No bm. No cough. No sz/rash. No vickers/dizziness/visual or neuro changes. No dysuria. Exam/Review of Systems Vital Signs Vitals Vital Signs Date Time Temp Pulse Resp B/P Pulse Ox O2 Delivery O2 Flow Rate FiO2 12/30/16 09:14 98.3 88 18 106/61 96 12/28/16 12:00 Room Air 12/27/16 20:22 2.0 Intake and Output 12/29/16 12/29/16 12/30/16 15:00 23:00 07:00 Intake Total 920 ml 1320 ml Output Total 1200 ml 1100 ml Balance -280 ml 220 ml Exam Free Text/Dictation Constitutional: alert, oriented, No distress Psych: nl mood/affect, No anxiety, No confusion Head: atraumatic, normocephalic Eyes: EOMI, PERRL, nl conjunctiva, No icteric ENMT: mucosa pink and moist, nl external ears & nose, nl lips & teeth Neck: non-tender, supple, No jvd Respiratory: normal air movement, No congested cough, No labored breathing Cardiovascular: regular rate and rhythm, No edema Gastrointestinal: soft, tender (Min), No distended, No rebound or guarding Musculoskeletal: nl extremities to inspection, nl gait and stance, No joint tenderness Extremities: normal pulses, No calf tenderness, No cyanosis Neurological: nl mental status, nl speech, nl strength Skin: nl turgor, rash or lesions (LLQ wound with sutures and david. No foul odor. No purulent dc.), No diaphoresis Lymph: nl lymph nodes, nontender Results Result Diagram: 12/30/1643912/30/16439 BREE GUZMAN MD December 30, 2016 11:32
--- NOTE | 2016-12-30 11:33 | PN ---
Date/Time of Note Date/Time of Note DATE: 12/30/16 TIME: 11:32 Assessment/Plan Lines/Catheters IV Catheter Type (from Nrs): Peripheral IV Vogel in Place (from Nrs): No Assessment/Plan Chief Complaint/Hosp Course 1. Paralytic ileus. Improving -oob/ambulate -diet as tolerated 2. Anemia without blood loss -monitor 3. Dyslipidemia -diet/med optimization 4. BMI 28 -eventual diet/exercise optimization Thank you, Problems: Subjective 24 Hr Interval Summary Min pain. Flatus. No bm. No cough. No sz/rash. No vickers/dizziness/visual or neuro changes. No dysuria. Exam/Review of Systems Vital Signs Vitals Vital Signs Date Time Temp Pulse Resp B/P Pulse Ox O2 Delivery O2 Flow Rate FiO2 12/30/16 09:14 98.3 88 18 106/61 96 12/28/16 12:00 Room Air 12/27/16 20:22 2.0 Intake and Output 12/29/16 12/29/16 12/30/16 15:00 23:00 07:00 Intake Total 920 ml 1320 ml Output Total 1200 ml 1100 ml Balance -280 ml 220 ml Exam Free Text/Dictation Constitutional: alert, oriented, No distress Psych: nl mood/affect, No anxiety, No confusion Head: atraumatic, normocephalic Eyes: EOMI, PERRL, nl conjunctiva, No icteric ENMT: mucosa pink and moist, nl external ears & nose, nl lips & teeth Neck: non-tender, supple, No jvd Respiratory: normal air movement, No congested cough, No labored breathing Cardiovascular: regular rate and rhythm, No edema Gastrointestinal: soft, tender (Min), No distended, No rebound or guarding Musculoskeletal: nl extremities to inspection, nl gait and stance, No joint tenderness Extremities: normal pulses, No calf tenderness, No cyanosis Neurological: nl mental status, nl speech, nl strength Skin: nl turgor, rash or lesions (LLQ wound with sutures and david. No foul odor. No purulent dc.), No diaphoresis Lymph: nl lymph nodes, nontender Results Result Diagram: 12/30/16 0440 12/30/16 044 BREE GUZMAN MD December 30, 2016 11:33
--- NOTE | 2016-12-30 12:52 | PN ---
DATE: 12/30/2016 TIME OF EVALUATION: 11:30 a.m. SUBJECTIVE DATA: Incisional pain well controlled. Started on a full liquid diet. So far tolerating well. OBJECTIVE DATA: VITAL SIGNS: Temperature 98.3, pulse rate 88, respiratory rate 18, blood pressure 106/61, oxygen saturation 96% on room air. GENERAL: This is a well-built, well-nourished female patient lying in bed in no apparent distress. HEENT: Head normocephalic and atraumatic. Eyes: Anicteric sclerae. Conjunctivae clear. ENT: Nasal septum is midline. Oral mucosa is moist. NECK: Supple. No JVD noticed. RESPIRATORY: Bilaterally clear to auscultation. No adventitious breath sounds heard. No use of accessory muscles of respiration. CARDIAC: Regular rate and rhythm. S1 and S2 heard. ABDOMEN: Right lower quadrant transverse incision with surgical glue in place. Midline surgical dressing which is clean, dry and intact. GENITOURINARY: Deferred. EXTREMITIES: No cyanosis, no clubbing, no edema. Peripheral pulses are palpable. NEUROLOGIC: The patient is awake, alert and oriented. Cranial nerves are grossly intact. LABORATORY AND DIAGNOSTIC DATA: WBC 7.3, hemoglobin 10.6, hematocrit 32.9, platelet count 219. Sodium 137, potassium 4.1, chloride 101, carbon dioxide 26 , anion gap 14, BUN 8, creatinine 0.64, glucose 150, calcium 9.5. ASSESSMENT AND PLAN: 1. History of colorectal resection and colostomy in the past. Status post laparoscopic colostomy reversal and takedown with laparoscopic colostomy-distal rectal anastomosis on 12/27/2016. Continue pain management. Continue incentive spirometry and frequent ambulation. The patient's diet to be advanced as per surgery. 2. Normocytic anemia. History of iron deficiency. We will repeat an iron panel. 3. Dyslipidemia. Statin is on hold. We will repeat serum lipid level. 4. Fluid, electrolytes and nutrition. Continue full liquid diet. Advance diet as per surgery. 5. Deep venous thrombosis prophylaxis with bilateral sequential compression devices. 6. Gastrointestinal prophylaxis. Proton pump inhibitors. PLAN: Advance diet as per surgery. Obtain physical therapy evaluation. Case discussed with Dr. Veronica. EARLENE VERONICA MD, AM/ADRIANNE Conf#: [id number] [facility]#: [id number] MTDD
[2016-12-30 13:05] LABS: IRON 35 ug/dl (35-150)
[2016-12-30 13:15] LABS: TOTAL IRON BINDING CAPACITY 210 ug/dl (241-421)
[2016-12-30] MEDS: ACETAMINOPHEN 500 MG TAB PO PRN (18:39)
[2016-12-30 19:56] VITALS: BP 121/69; RESP 16
[2016-12-31] MEDS: D5W-0.45 NACL + KCL 20 MEQ 1,000 ML IV SCH (04:20)
[2016-12-31] MEDS: PANTOPRAZOLE (EC) 40 MG TAB PO SCH ×2 (05:20→05:30)
[2016-12-31] MEDS: ENOXAPARIN 40 MG/0.4 ML SYG SC SCH (05:30)
[2016-12-31 06:01] LABS: ADD SCAN DIFF NO
[2016-12-31 06:07] LABS: BASOPHILS % 0.4 % (0.0-2.0); EOSINOPHILS # 0.4 10^3/ul (0.0-0.5); EOSINOPHILS % 4.8 % (0.0-7.0); HEMATOCRIT 33.5 % (37.0-47.0); HEMOGLOBIN 10.6 g/dl (12.0-16.0); LYMPHOCYTES # 1.4 10^3/ul (0.8-2.9); LYMPHOCYTES % 18.6 % (15.0-51.0); MEAN CORPUSCULAR HEMOGLOBIN 26.2 pg (29.0-33.0); MEAN CORPUSCULAR HGB CONC 31.6 g/dl (32.0-37.0); MEAN CORPUSCULAR VOLUME 82.9 fl (82.0-101.0); MEAN PLATELET VOLUME 9.1 fl (7.4-10.4); MONOCYTE # 0.7 10^3/ul (0.3-0.9); MONOCYTES % 9.4 % (0.0-11.0); NEUTROPHIL # 4.8 10^3/ul (1.6-7.5); NEUTROPHILS % 65.7 % (39.0-77.0); PLATELET COUNT 263 10^3/UL (140-415); RED BLOOD COUNT 4.04 10^6/ul (4.20-5.40); RED CELL DISTRIBUTION WIDTH 15.2 % (11.5-14.5); WHITE BLOOD COUNT 7.3 10^3/ul (4.8-10.8)
[2016-12-31 06:09] LABS: ALBUMIN 3.6 g/dl (3.3-4.9); ALBUMIN/GLOBULIN RATIO 0.9; BILIRUBIN,INDIRECT 0.3 mg/dl (0-1.1); BILIRUBIN,TOTAL 0.3 mg/dl (0.2-1.3); CALCIUM 9.8 mg/dl (8.4-10.2); CREATININE 0.57 mg/dl (0.44-1.00); MAGNESIUM 1.9 mg/dl (1.7-2.5); POTASSIUM 4.4 mmol/L (3.5-5.1); TOTAL PROTEIN 7.6 g/dl (6.1-8.1)
[2016-12-31 08:13] VITALS: BP 114/60; RESP 18
--- NOTE | 2016-12-31 13:39 | PN ---
Date/Time of Note Date/Time of Note DATE: 12/31/16 TIME: 13:37 Assessment/Plan Lines/Catheters IV Catheter Type (from Nrs): Peripheral IV Vogel in Place (from Nrs): No Assessment/Plan Chief Complaint/Hosp Course 1. Paralytic ileus. Improved -oob/ambulate -diet as tolerated -dc planning ok from surgical standpoint 2. Anemia without blood loss -monitor 3. Dyslipidemia -diet/med optimization 4. BMI 28 -eventual diet/exercise optimization Thank you, Problems: Subjective 24 Hr Interval Summary Min pain. Flatus and multiple bms. No cough. No sz/rash. No vickers/dizziness/ visual or neuro changes. No dysuria. Exam/Review of Systems Vital Signs Vitals Vital Signs Date Time Temp Pulse Resp B/P Pulse Ox O2 Delivery O2 Flow Rate FiO2 12/31/16 08:13 98.4 93 18 114/60 97 12/28/16 12:00 Room Air 12/27/16 20:22 2.0 Intake and Output 12/30/16 12/30/16 12/31/16 14:59 22:59 06:59 Intake Total 930 ml 1540 ml Output Total 1050 ml Balance 930 ml 490 ml Exam Free Text/Dictation Constitutional: alert, oriented, No distress Psych: nl mood/affect, No anxiety, No confusion Head: atraumatic, normocephalic Eyes: EOMI, PERRL, nl conjunctiva, No icteric ENMT: mucosa pink and moist, nl external ears & nose, nl lips & teeth Neck: non-tender, supple, No jvd Respiratory: normal air movement, No congested cough, No labored breathing Cardiovascular: regular rate and rhythm, No edema Gastrointestinal: soft, tender (Min), No distended, No rebound or guarding Musculoskeletal: nl extremities to inspection, nl gait and stance, No joint tenderness Extremities: normal pulses, No calf tenderness, No cyanosis Neurological: nl mental status, nl speech, nl strength Skin: nl turgor, rash or lesions (LLQ wound with sutures and david. No foul odor. No purulent dc.), No diaphoresis Lymph: nl lymph nodes, nontender Results Result Diagram: 12/31/16 0420 12/31/16419 BREE GUZMAN MD December 31, 2016 13:38
[2016-12-31] MEDS: ACETAMINOPHEN 500 MG TAB PO PRN (14:14)
--- NOTE | 2016-12-31 14:26 | PDOCDIS ---
Discharge Instructions CONDITION Patient Condition: Good HOME CARE INSTRUCTIONS: Special Diet: Soft ACTIVITY: Activity Restrictions: Slowly Increase Activity Rest between Activity Avoid heavy lifting Do not operate Power Tool Avoid Heavy Housework FOLLOW UP/APPOINTMENTS Appointments Follow up with Dr. Marlon vale in one week REBECA BTAES MD December 31, 2016 14:26
[2016-12-31] MEDS ORDERED: TRAM50TA2 PO (14:27)
[2016-12-31] MEDS ORDERED: PANT40TA4 PO (14:27)
--- NOTE | 2016-12-31 15:18 | DS ---
DATE OF ADMISSION: 12/27/2016 DATE OF DISCHARGE: 12/31/2016 The patient was admitted by Dr. Bruce Rodriguez. DIAGNOSES: 1. Paralytic ileus. 2. Anemia. 3. Dyslipidemia. 4. Body mass index 28. 5. Gastroesophageal reflux disease. MEDICATIONS 1. Atorvastatin. 2. Vitamin D. 3. Probiotic. 4. [place]-3 fatty acid. 5. Protonix. 6. Tramadol. ALLERGIES: NO KNOWN DRUG ALLERGIES. PROCEDURE: Laparoscopic colostomy reversal and takedown and low colon distal rectal anastomosis, pa rtial left colectomy and rigid sigmoidoscopy on 12/27/2016. HOSPITAL COURSE: This is a 66-year-old female with past medical history of perforated diverticuliti s with pelvic adhesion, dyslipidemia, vitamin D deficiency, who was status post laparoscopic sigmoid resection with colostomy and Jeremy pouch placement, was admitted by Dr. Marlon Rodriguez on 7 for elective surgery for reversal of ostomy. On 12/27/2016, patient was taken to OR and she had l aparoscopic colostomy reversal and takedown, which patient tolerated the procedure well and was take n to recovery room and was admitted to medical/surgical, where she was placed on pain medication, IV fluid. For DVT prophylaxis, the patient was placed on Lovenox postoperatively. The patient was pl aced on cefazolin and Flagyl for IV antibiotics, which were then discontinued. The patient's WBC vickers s been within normal limits. Her hemoglobin and hematocrit have been stable. The patient was seen and evaluated by Dr. Marlon Rodriguez today and has been able to tolerate oral intake and has had bowel m ovement today. The patient today is surgically stable to be discharged home, and Dr. Marlon Rodriguez as ked me to discharge the patient. CONDITION AT TIME OF DISCHARGE: Stable. LABORATORY DATA: Sodium 139, potassium 4.4, chloride 102, bicarbonate 27, BUN 5, creatinine 0.57, glucose 114, calcium 9.8. Magnesium 1.9. Total iron 35, TIBC 210, iron saturation 17, ferritin 676 . Triglycerides 122, total cholesterol 213, LDL 136, HDL 53. WBC 7.3, hemoglobin 10.6, hematocrit 33.5, platelets 263. VITAL SIGNS: Temperature 98.4, pulse 93, respirations 18, blood pressure 114/69, saturation 97% in room air. FOLLOWUP: With Dr. Marlon Rodriguez in 1 week. DIET: Soft diet. ACTIVITY: Light activity x4 weeks. Dictated By: REBECA KUMAR/ADRIANNE Conf#: [id number] DID#: [id number]
== END 2016-12-31 15:30 | disposition home or self-care (01) | DRG 330 ==
LOC: REC 05:52 → MS1 14:16
PROVIDERS: ADMIT Surgery; ATTEND Surgery
PROC: 0DU Gastrointestinal System, Supplement (ICD-10-PCS; 2016-12-27)
PROC: 0DBE4ZZ Excision of Large Intestine, Percutaneous Endoscopic Approach (ICD-10-PCS; principal; 2016-12-27 08:00)
DX: Z43.3 Encounter for attention to colostomy (principal); K56.0 Paralytic ileus; E78.5 Hyperlipidemia, unspecified; D64.9 Anemia, unspecified; K21.9 Gastro-esophageal reflux disease without esophagitis; Z87.19 Personal history of other diseases of the digestive system; E55.9 Vitamin D deficiency, unspecified
CPT/HCPCS: 80048; 80053; 80061; 81001; 81003; 82728; 83540; 83735; 84100; 85025; 87086; 88307; 97163; J0690; J1100; J1170; J1650; J2250; J2274; J2405; J2710; J3010; J3480; Q4166